=== PATIENT | male | born 1960 | race African-American/Black ===

== ENCOUNTER 2018-06-04 18:21 | Inpatient (IN) ==
[2018-06-04] MEDS ORDERED: Enoxaparin Inj 80 MG/0.8 ML Syringe SQ ONE (18:38)
--- NOTE | 2018-06-04 18:46 | ED ---
HPI General Chief Complaint: Chest Pain Stated Complaint: DR SENT WITH CARDIAC SHEET Time Seen by Provider: 06/04/18 18:38 Source: patient Mode of arrival: ambulatory Limitations: no limitations History of Present Illness HPI narrative: Patient presented to an urgent care where he was found to have atrial fibrillation with rapid ventricular rate, an EKG was performed and sent with the patient. Per patient he states that he is only has a history of hypertension for which she is on lisinopril aspirin and takes multivitamins. He does not have a ethics instructor that he recalls, although he has had a echo cardiogram as an outpatient somewhere along [facility] according to the patient. patient felt palpitations and chest pressure....presently he only feels palpitations but without cp/sob MD complaint: Reports "heart racing" and palpitations Duration: constant Severity: mild (According to patient) Context: Reports occurred during rest Arrhythmia history: Reports other (No history of any heart issues at all per patient); Denies on anti-coagulants Associated symptoms: Reports chest pain Related Data Home Medications Medication Instructions Recorded Confirmed aspirin 81 mg PO DAILY 06/04/18 06/04/18 lisinopril 20 mg PO DAILY 06/04/18 06/04/18 Allergies Allergy/AdvReac Type Severity Reaction Status Date / Time No Known Allergies Allergy Verified 06/04/18 18:27 Review of Systems ROS: all other systems reviewed are negative [facility] Medical History Medical History Hypertension (Acute) Surgical History Surgical History No history of previous surgery (Acute) Social History Social History Substance History: No History of Abuse Smoking Status: Never smoker How Often Do You Have a Drink Containing Alcohol: Never Recent Travel in [place] within the Last 8 Weeks: No Recent Out of Country Travel within the Last 8 Weeks: No Immunization History Tetanus Immunization: <5 Years Exam Narrative Exam Narrative: GENERAL: -[place]isian male in no apparent distress. SKIN: Warm and dry. HEAD: Atraumatic. Normocephalic. EYES: Pupils equal and round. No scleral icterus. No injection or drainage. ENT: No nasal bleeding or discharge. Mucous membranes pink and moist. NECK: Trachea midline. No JVD. CARDIOVASCULAR: Tachycardic rate, irregularly irregular rhythm .... Unable to discern if there are any murmurs rubs or gallops RESPIRATORY: No accessory muscle use. Clear to auscultation. Breath sounds equal bilaterally. GASTROINTESTINAL: Abdomen soft, non-tender, nondistended. No rebound or guarding MUSCULOSKELETAL: Extremities without clubbing, cyanosis, or edema. No obvious deformities. NEUROLOGICAL: Awake and alert. No obvious cranial nerve deficits. Motor grossly within normal limits. Five out of 5 muscle strength in the arms and legs. Normal speech. PSYCHIATRIC: Appropriate mood and affect; insight and judgment normal. Course Initial Documented Vital Signs Temperature 98.4 F 06/04/18 18:25 Pulse Rate 166 H 06/04/18 18:25 Respiratory Rate 20 06/04/18 18:25 Blood Pressure 157/115 H 06/04/18 18:25 Pulse Oximetry 100 06/04/18 18:25 Last Documented Vital Signs Temperature 98.4 F 06/04/18 18:25 Pulse Rate 108 H 06/04/18 21:46 Respiratory Rate 16 06/04/18 20:57 Blood Pressure 161/78 H 06/04/18 21:46 Pulse Oximetry 96 06/04/18 20:40 Critical Care Time Critical Care Time: Yes Total Critical Care Time: 30 Attestation: Aggregate critical care time was 30 minutes. Time to perform other separately billable procedures was not included in the critical care time. My time did not include minutes spent treating any other patients simultaneously or on activities that did not directly contribute to the patient's treatment. The services I provided to this patient were to treat and/or prevent clinically significant deterioration. I provided critical care services requiring my management, as noted below: Chart data review, documentation time, medication orders and management, vital sign assessments/reviewing monitor data, ordering and reviewing lab tests, ordering and interpreting/reviewing x-rays and diagnostic studies, care of the patient and discussion of the patient with the admitting physicians. Medical Decision Making MDM Narrative Medical decision making narrative: Chest x-ray is negative examination per radiology report Laboratory interpretation to follow: No leukocytosis, no anemia, slight neutrophilia of 84%, low platelet count of 123,000 Coagulation profile is within normal limits. D-dimer is elevated Mildly elevated AST of 83 ALT of 125 alk phos is normal total bilirubin is also within normal limits these are not altered enough to follow-up acutely but patient was made aware to follow-up with his primary care Creatinine 1.34, GFR 66 CT chest read by radiologist as no evidence of pulmonary embolus, no pericardial effusion, no evidence of any aneurysm, however there is a small right-sided pleural effusion. Medical Screen Exam Complete: Yes Emergency Medical Condition: Yes Medical Records Medical records reviewed: Yes I reviewed the patient's medical records. Lab Data Result diagrams: 06/04/18 18:42 06/04/18 18:42 Lab Results 06/04/18 06/04/18 06/04/18 Range/Units 18:42 18:42 18:42 WBC (4.0-11.0) th/mm3 RBC (4.50-5.90) mil/mm3 Hgb (13.0-17.0) gm/dL Hct (39.0-51.0) % MCV (80.0-100.0) fL MCH (27.0-34.0) pg MCHC (32.0-36.0) % RDW (11.6-17.2) % Plt Count (150-450) th/mm3 MPV (7.0-11.0) fL Neut % (Auto) (16.0-70.0) % Lymph % (Auto) (9.0-44.0) % Davidson % (Auto) (0.0-8.0) % Eos % (Auto) (0.0-4.0) % Baso % (Auto) (0.0-2.0) % Neut # (Auto) (1.8-7.7) th/mm3 Lymph # (Auto) (1.0-4.8) th/mm3 Davidson # (Auto) (0.0-0.9) th/mm3 Eos # (Auto) (0.0-0.4) th/mm3 Baso # (Auto) (0.0-0.2) th/mm3 WBC Differential Differential Comment PT (9.8-11.6) sec INR Ratio APTT (24.3-30.1) sec D-Dimer Quant (PE/DVT) 2.27 H (0.00-0.50) mg/L FEU Sodium (136-145) meq/L Potassium (3.5-5.1) meq/L Chloride (98-107) meq/L Carbon Dioxide (21.0-32.0) meq/L Anion Gap (5-15) meq/L BUN (7-18) mg/dL Creatinine (0.60-1.30) mg/dL Estimated GFR (>89) mL/min Random Glucose (74-106) mg/dL Calcium (8.5-10.1) mg/dL Total Bilirubin (0.2-1.0) mg/dL AST (15-37) U/L ALT (12-78) U/L Alkaline Phosphatase (45-117) U/L Total Creatine Kinase (39-308) U/L CK-MB (CK-2) (0.5-3.6) ng/mL Troponin I (0.02-0.05) ng/mL B-Natriuretic Peptide 115 H (0-100) pg/mL Total Protein (6.4-8.2) g/dL Albumin (3.4-5.0) g/dL Lipase 190 (73-393) U/L Urine Color (Yellw/Straw) Urine Clarity (Clear) Urine pH (5.0-8.5) Ur Specific Rhame (1.002-1.035) Urine Protein (Neg-Trace) mg/dL Urine Glucose (UA) (Negative) mg/dL Urine Ketones (Negative) mg/dL Urine Occult Blood (Negative) Urine Nitrate (Negative) Urine Bilirubin (Negative) Urine Urobilinogen (Less than 2) mg/dL Ur Leukocyte Esterase (Negative) Urine RBC (0-3) /hpf Urine WBC (0-5) /hpf Micro UA Comment Ur Microscopic Review Urine Culture Comments Urine Opiates Screen (Neg) Ur Barbiturates Screen (Neg) Ur Amphetamines Screen (Neg) U Benzodiazepines Scrn (Neg) Urine Cocaine Screen (Neg) U Cannabinoids Screen (Neg) 06/04/18 06/04/18 06/04/18 Range/Units 18:42 18:42 18:42 WBC 5.2 (4.0-11.0) th/mm3 RBC 4.32 L (4.50-5.90) mil/mm3 Hgb 13.7 (13.0-17.0) gm/dL Hct 41.4 (39.0-51.0) % MCV 96.0 (80.0-100.0) fL MCH 31.8 (27.0-34.0) pg MCHC 33.1 (32.0-36.0) % RDW 15.3 (11.6-17.2) % Plt Count 123 L (150-450) th/mm3 MPV 8.6 (7.0-11.0) fL Neut % (Auto) 83.5 H (16.0-70.0) % Lymph % (Auto) 11.3 (9.0-44.0) % Davidson % (Auto) 4.3 (0.0-8.0) % Eos % (Auto) 0.1 (0.0-4.0) % Baso % (Auto) 0.8 (0.0-2.0) % Neut # (Auto) 4.3 (1.8-7.7) th/mm3 Lymph # (Auto) 0.6 L (1.0-4.8) th/mm3 Davidson # (Auto) 0.2 (0.0-0.9) th/mm3 Eos # (Auto) 0.0 (0.0-0.4) th/mm3 Baso # (Auto) 0.0 (0.0-0.2) th/mm3 WBC Differential . Differential Comment Auto diff final PT 11.0 (9.8-11.6) sec INR 1.1 Ratio APTT 22.2 L (24.3-30.1) sec D-Dimer Quant (PE/DVT) (0.00-0.50) mg/L FEU Sodium 139 (136-145) meq/L Potassium 3.6 (3.5-5.1) meq/L Chloride 106 (98-107) meq/L Carbon Dioxide 24.4 (21.0-32.0) meq/L Anion Gap 9 (5-15) meq/L BUN 16 (7-18) mg/dL Creatinine 1.34 H (0.60-1.30) mg/dL Estimated GFR 66 L (>89) mL/min Random Glucose 134 H (74-106) mg/dL Calcium 8.2 L (8.5-10.1) mg/dL Total Bilirubin 1.1 H (0.2-1.0) mg/dL AST 83 H (15-37) U/L ALT 125 H (12-78) U/L Alkaline Phosphatase 77 (45-117) U/L Total Creatine Kinase 217 (39-308) U/L CK-MB (CK-2) 1.2 (0.5-3.6) ng/mL Troponin I Less than 0.02 L (0.02-0.05) ng/mL B-Natriuretic Peptide (0-100) pg/mL Total Protein 7.4 (6.4-8.2) g/dL Albumin 3.7 (3.4-5.0) g/dL Lipase (73-393) U/L Urine Color (Yellw/Straw) Urine Clarity (Clear) Urine pH (5.0-8.5) Ur Specific Rhame (1.002-1.035) Urine Protein (Neg-Trace) mg/dL Urine Glucose (UA) (Negative) mg/dL Urine Ketones (Negative) mg/dL Urine Occult Blood (Negative) Urine Nitrate (Negative) Urine Bilirubin (Negative) Urine Urobilinogen (Less than 2) mg/dL Ur Leukocyte Esterase (Negative) Urine RBC (0-3) /hpf Urine WBC (0-5) /hpf Micro UA Comment Ur Microscopic Review Urine Culture Comments Urine Opiates Screen (Neg) Ur Barbiturates Screen (Neg) Ur Amphetamines Screen (Neg) U Benzodiazepines Scrn (Neg) Urine Cocaine Screen (Neg) U Cannabinoids Screen (Neg) 06/04/18 06/04/18 Range/Units 19:45 19:45 WBC (4.0-11.0) th/mm3 RBC (4.50-5.90) mil/mm3 Hgb (13.0-17.0) gm/dL Hct (39.0-51.0) % MCV (80.0-100.0) fL MCH (27.0-34.0) pg MCHC (32.0-36.0) % RDW (11.6-17.2) % Plt Count (150-450) th/mm3 MPV (7.0-11.0) fL Neut % (Auto) (16.0-70.0) % Lymph % (Auto) (9.0-44.0) % Davidson % (Auto) (0.0-8.0) % Eos % (Auto) (0.0-4.0) % Baso % (Auto) (0.0-2.0) % Neut # (Auto) (1.8-7.7) th/mm3 Lymph # (Auto) (1.0-4.8) th/mm3 Davidson # (Auto) (0.0-0.9) th/mm3 Eos # (Auto) (0.0-0.4) th/mm3 Baso # (Auto) (0.0-0.2) th/mm3 WBC Differential Differential Comment PT (9.8-11.6) sec INR Ratio APTT (24.3-30.1) sec D-Dimer Quant (PE/DVT) (0.00-0.50) mg/L FEU Sodium (136-145) meq/L Potassium (3.5-5.1) meq/L Chloride (98-107) meq/L Carbon Dioxide (21.0-32.0) meq/L Anion Gap (5-15) meq/L BUN (7-18) mg/dL Creatinine (0.60-1.30) mg/dL Estimated GFR (>89) mL/min Random Glucose (74-106) mg/dL Calcium (8.5-10.1) mg/dL Total Bilirubin (0.2-1.0) mg/dL AST (15-37) U/L ALT (12-78) U/L Alkaline Phosphatase (45-117) U/L Total Creatine Kinase (39-308) U/L CK-MB (CK-2) (0.5-3.6) ng/mL Troponin I (0.02-0.05) ng/mL B-Natriuretic Peptide (0-100) pg/mL Total Protein (6.4-8.2) g/dL Albumin (3.4-5.0) g/dL Lipase (73-393) U/L Urine Color Yellow (Yellw/Straw) Urine Clarity Hazy H (Clear) Urine pH 6.0 (5.0-8.5) Ur Specific Rhame 1.002 (1.002-1.035) Urine Protein Negative (Neg-Trace) mg/dL Urine Glucose (UA) Negative (Negative) mg/dL Urine Ketones Negative (Negative) mg/dL Urine Occult Blood Negative (Negative) Urine Nitrate Negative (Negative) Urine Bilirubin Negative (Negative) Urine Urobilinogen Less than 2 (Less than 2) mg/dL Ur Leukocyte Esterase Negative (Negative) Urine RBC Less than 1 (0-3) /hpf Urine WBC Less than 1 (0-5) /hpf Micro UA Comment Culture not ind Ur Microscopic Review Not Reportable Urine Culture Comments Culture not ind Urine Opiates Screen Neg (Neg) Ur Barbiturates Screen Neg (Neg) Ur Amphetamines Screen Neg (Neg) U Benzodiazepines Scrn Neg (Neg) Urine Cocaine Screen Neg (Neg) U Cannabinoids Screen Neg (Neg) Imaging Data Radiologist's impression: Chest X-Ray 06/04/18 18:39 CONCLUSION: Negative examination. Chest CTA 06/04/18 19:32 CONCLUSION: 1. No evidence for pulmonary embolism. 2. Small right-sided pleural effusion. ECG Data EKG Prior to Arrival: No Attestation: I personally reviewed and interpreted this ECG as follows: Prior ECG tracings: not available for review Interpretation: Patient's EKG was found consistent with atrial fibrillation with rapid ventricular rate, at 160 bpm. No slurred delta wave noted, no widened QRS noted. Discharge Plan Discharge Disposition Patient Disposition: 30 Still Patient Discharge Condition Condition: Fair Discharge Details Diagnosis: Atrial fibrillation, new onset Physicians Team ED Provider: Romain Kapoor Primary Care Provider: Daryn Hood Attending Provider: Kenisha Carey Status ED Status: Admitted Observation Patient
[2018-06-04 18:58] LABS: Baso % (Auto) 0.8 % (0.0-2.0); Eos % (Auto) 0.1 % (0.0-4.0); Hematocrit 41.4 % (39.0-51.0); Hemoglobin 13.7 gm/dL (13.0-17.0); Lymph # (Auto) 0.6 th/mm3 (1.0-4.8); Lymph % (Auto) 11.3 % (9.0-44.0); Mean Corpuscular HGB Conc 33.1 % (32.0-36.0); Mean Corpuscular Hemoglobin 31.8 pg (27.0-34.0); Mean Platelet Volume 8.6 fL (7.0-11.0); Mono # (Auto) 0.2 th/mm3 (0.0-0.9); Mono % (Auto) 4.3 % (0.0-8.0); Neut # (Auto) 4.3 th/mm3 (1.8-7.7); Neut % (Auto) 83.5 % (16.0-70.0); Platelet Count 123 th/mm3 (150-450); Red Blood Count 4.32 mil/mm3 (4.50-5.90); Red Cell Distribution Width 15.3 % (11.6-17.2); White Blood Count 5.2 th/mm3 (4.0-11.0)
[2018-06-04 19:16] LABS: Albumin 3.7 g/dL (3.4-5.0); Anion Gap 9 meq/L (5-15); Aspartate Aminotransferase 83 U/L (15-37); Blood Urea Nitrogen 16 mg/dL (7-18); Calcium 8.2 mg/dL (8.5-10.1); Carbon Dioxide 24.4 meq/L (21.0-32.0); Chloride 106 meq/L (98-107); Glomerular Filtration Rate 66 mL/min (>89); Glucose,Random 134 mg/dL (74-106); Potassium 3.6 meq/L (3.5-5.1); Sodium 139 meq/L (136-145)
[2018-06-04 19:17] LABS: Alanine Aminotransferase 125 U/L (12-78)
[2018-06-04 19:19] LABS: Activated Partial Thrombo Time 22.2 sec (24.3-30.1); INR 1.1 Ratio
[2018-06-04 19:21] LABS: Alkaline Phosphatase 77 U/L (45-117); Creatine Kinase 217 U/L (39-308); Total Protein 7.4 g/dL (6.4-8.2)
--- NOTE | 2018-06-04 19:28 | XR ---
EXAM DATE: 06/04/2018 6:39 PM EDT AGE/SEX: 57 years / Male INDICATIONS: Patient complains of chest pain. CLINICAL DATA: This is the patient's initial encounter. Patient reports that signs and symptoms have been present for 3 days and indicates a pain score of 4/10. MEDICAL/SURGICAL HISTORY: None. None. COMPARISON: [facility] [place], CHEST SINGLE AP, 03/13/2016. . FINDINGS: A single AP view of the chest demonstrates the lungs to be symmetrically aerated without evidence of mass, infiltrate or effusion. The cardiomediastinal contours are unremarkable. Osseous structures a re intact. CONCLUSION: Negative examination. Electronically signed by: Pb Shah MD 06/04/2018 7:27 PM EDT
[2018-06-04 19:34] LABS: Creatine Kinase MB 1.2 ng/mL (0.5-3.6)
[2018-06-04] MEDS: dilTIAZem Inj 125 MG in Sodium Chlor 0.9% Inj 100 ML IV.CONT PRN (19:41)
[2018-06-04 20:06] LABS: Bilirubin,Urine Negative (Negative); Clarity,Urine Hazy (Clear); Color,Urine Yellow (Yellw/Straw); Glucose,Urine (UA) Negative (Negative); Leukocyte Esterase,Urine Negative (Negative); Nitrite,Urine Negative (Negative); Specific Gravity,Urine 1.002 (1.002-1.035)
[2018-06-04 20:17] LABS: Barbiturate Screen,Urine Neg (Neg); Cannabinoid Screen,Urine Neg (Neg); Cocaine Screen,Urine Neg (Neg)
[2018-06-04 20:18] LABS: Amphetamine Screen,Urine Neg (Neg)
--- NOTE | 2018-06-04 20:20 | CT ---
EXAM DATE: 06/04/2018 7:45 PM EDT AGE/SEX: 57 years / Male INDICATIONS: Heart palpitations with elevated D-Dimer. CLINICAL DATA: This is the patient's initial encounter. Patient reports that signs and symptoms have been present for 1 day and indicates a pain score of 0/10. MEDICAL/SURGICAL HISTORY: Cardiovascular disease. Hypertension. None. RADIATION DOSE: 23.38 CTDI (mGy) COMPARISON: [facility], CHEST 1V SINGLE AP, 06/04/2018. . TECHNIQUE: Volumetric scanning was performed using a multi-row detector CT scanner during bolus infu dedrick of 75 ml Omnipaque 350 (iohexol) nonionic water-soluble contrast as a single exam dose. The aletha a was post processed with a variety of visualization algorithms including full volume maximum intensi ty projection and sliding thin slab reformation. Using automated exposure control and adjustment of the mA and/or kV according to patient size, radiation dose was kept as low as reasonably achievable t o obtain optimal diagnostic quality images. DICOM format image data is available electronically for review and comparison. FINDINGS: Lungs are clear. No adenopathy. There is a small right-sided pleural effusion. There is no evidence o f pulmonary embolus. There are mild degenerative changes of the spine. CONCLUSION: 1. No evidence for pulmonary embolism. 2. Small right-sided pleural effusion. Electronically signed by: Pb Shah MD 06/04/2018 8:19 PM EDT
[2018-06-04 20:22] LABS: Opiate Screen,Urine Neg (Neg)
--- NOTE | 2018-06-04 22:27 | P.HP ---
History of Present Illness Service: [facility] Primary Care Physician: Daryn Hood MD History of Present Illness: 57-year-old male with past medical history significant for hypertension presents to the emergency department from urgent care for the evaluation of atrial fibrillation with rapid ventricular response. The patient was recently treated with Levaquin for a sinus infection and was given albuterol nebulizer treatments. He reports he had a neb this a.m. when he started to develop palpitations and a feeling in his chest as if he had to cough but could not. He endorses associated nausea. He denies any dizziness or shortness of breath. No syncopal episodes. He does not have a history of atrial fibrillation and he does not have a leak patcher. No chest pain or shortness of breath. No abdominal pain. No vomiting/diarrhea. No lateralizing signs/symptoms. No fever/chills. Review of Systems All other systems reviewed negative except as stated in HPI PMFSH - History History Provided By: Patient - Medical History Medical History: Medical History (Last Reviewed 06/04/18 @ 22:22 by Kenisha Carey MD) Hypertension - Surgical History Surgical History: Surgical History (Last Reviewed 06/04/18 @ 22:22 by Kenisha Carey MD) No history of previous surgery - Family History Family History: Family History (Last Updated 06/04/18 @ 22:22 by Kenisha Carey MD) Other Coronary artery disease - Tobacco History Smoking Status: Never smoker - Alcohol History How Often Do You Have a Drink Containing Alcohol: Never - Substance Use History Substance History: No History of Abuse - Travel History Recent Travel in the [place] Within the Last 8 Weeks: No Recent Travel Out of the Country Within the Last 8 Weeks: No - Immunization History Tetanus Immunization: <5 Years Medications and Allergies Active Medications: Active Medications Aspirin (Ecotrin) 81 mg PO DAILY SHEILA Enoxaparin Sodium (Lovenox Inj) 65 mg SQ Q12H SHEILA Diltiazem HCl 125 mg/ Sodium (Chloride) 125 mls @ 5 mls/hr IV.CONT TITRATE PRN ; Protocol PRN Reason: Per Protocol Last Titration: 06/04/18 20:20 Dose: 15 mg/hr, 15 mls/hr Lisinopril (Prinivil) 20 mg PO DAILY SHEILA Sodium Chloride (Ns Flush) 2 ml IV.FLUSH BID SHEILA Sodium Chloride (Ns Flush) 2 ml IV.FLUSH PRN PRN PRN Reason: FLUSH AFTER USING IV ACCESS Last Admin: 06/04/18 18:53 Dose: 2 ml Sodium Chloride (Ns Flush) 2 ml IV.FLUSH UNSCH PRN PRN Reason: FLUSH AFTER USING IV ACCESS Sodium Chloride (Ns Flush) 2 ml IV.FLUSH PRN PRN PRN Reason: FLUSH AFTER USING IV ACCESS Sodium Chloride (Ns Flush) 2 ml IV.FLUSH BID SHEILA Allergies Allergy/AdvReac Type Severity Reaction Status Date / Time No Known Allergies Allergy Verified 06/04/18 18:27 Home Medications Medication Instructions Recorded Confirmed Type aspirin 81 mg PO DAILY 06/04/18 06/04/18 History lisinopril 20 mg PO DAILY 06/04/18 06/04/18 History Exam Vital signs: Vital Signs 06/04/18 18:25 06/04/18 18:31 06/04/18 18:47 Temperature 98.4 F Pulse Rate 166 H 133 H 137 H Respiratory Rate 20 18 22 Blood Pressure 157/115 H 136/99 H 135/99 H Pulse Oximetry 100 97 99 06/04/18 19:29 06/04/18 20:40 06/04/18 20:57 Temperature Pulse Rate 145 H 124 H 124 H Respiratory Rate 18 16 Blood Pressure 161/98 H 159/92 H 172/92 H Pulse Oximetry 98 96 06/04/18 21:46 Temperature Pulse Rate 108 H Respiratory Rate Blood Pressure 161/78 H Pulse Oximetry Intake & Output 06/04/18 06/04/18 06/05/18 06:59 18:59 06:59 Output Total 1400 / 1400 Balance -1400 / -1400 Weight 67.132 kg Output: Urine 1400 / 1400 Narrative: Gen.: No acute distress Head: Normocephalic. Atraumatic. EENT: Pupils equal round and reactive to light. Nose without drainage. Airway intact. Throat without injection. Cardiovascular: Tachycardic. Irregularly irregular rhythm. No murmurs, rubs or gallops. Respiratory: Lungs clear to auscultation bilaterally. No wheezes or rhonchi. Abdomen: Soft, nontender, nondistended. No peritoneal signs. Musculoskeletal: No gross deformities. No edema. Skin: No obvious rashes or erythema. Neuro: Sensory and motor grossly intact. Cranial nerves II through XII grossly intact. Results - Labs CBC & Chem 7: 06/04/18 18:42 06/04/18 18:42 Labs: Laboratory Results - last 24 hr 06/04/18 06/04/18 06/04/18 18:42 18:42 18:42 WBC RBC Hgb Hct MCV MCH MCHC RDW Plt Count MPV Neut % (Auto) Lymph % (Auto) [place] % (Auto) Eos % (Auto) Baso % (Auto) Neut # (Auto) Lymph # (Auto) [place] # (Auto) Eos # (Auto) Baso # (Auto) WBC Differential Differential Comment PT INR APTT D-Dimer Quant (PE/DVT) 2.27 H Sodium Potassium Chloride Carbon Dioxide Anion Gap BUN Creatinine Estimated GFR Random Glucose Calcium Total Bilirubin AST ALT Alkaline Phosphatase Total Creatine Kinase CK-MB (CK-2) Troponin I B-Natriuretic Peptide 115 H Total Protein Albumin Lipase 190 Urine Color Urine Clarity Urine pH Ur Specific [place] Urine Protein Urine Glucose (UA) Urine Ketones Urine Occult Blood Urine Nitrate Urine Bilirubin Urine Urobilinogen Ur Leukocyte Esterase Urine RBC Urine WBC Micro UA Comment Ur Microscopic Review Urine Culture Comments Urine Opiates Screen Ur Barbiturates Screen Ur Amphetamines Screen U Benzodiazepines Scrn Urine Cocaine Screen U Cannabinoids Screen 06/04/18 06/04/18 06/04/18 18:42 18:42 18:42 WBC 5.2 RBC 4.32 L Hgb 13.7 Hct 41.4 MCV 96.0 MCH 31.8 MCHC 33.1 RDW 15.3 Plt Count 123 L MPV 8.6 Neut % (Auto) 83.5 H Lymph % (Auto) 11.3 [place] % (Auto) 4.3 Eos % (Auto) 0.1 Baso % (Auto) 0.8 Neut # (Auto) 4.3 Lymph # (Auto) 0.6 L [place] # (Auto) 0.2 Eos # (Auto) 0.0 Baso # (Auto) 0.0 WBC Differential . Differential Comment Auto diff final PT 11.0 INR 1.1 APTT 22.2 L D-Dimer Quant (PE/DVT) Sodium 139 Potassium 3.6 Chloride 106 Carbon Dioxide 24.4 Anion Gap 9 BUN 16 Creatinine 1.34 H Estimated GFR 66 L Random Glucose 134 H Calcium 8.2 L Total Bilirubin 1.1 H AST 83 H ALT 125 H Alkaline Phosphatase 77 Total Creatine Kinase 217 CK-MB (CK-2) 1.2 Troponin I Less than 0.02 L B-Natriuretic Peptide Total Protein 7.4 Albumin 3.7 Lipase Urine Color Urine Clarity Urine pH Ur Specific [place] Urine Protein Urine Glucose (UA) Urine Ketones Urine Occult Blood Urine Nitrate Urine Bilirubin Urine Urobilinogen Ur Leukocyte Esterase Urine RBC Urine WBC Micro UA Comment Ur Microscopic Review Urine Culture Comments Urine Opiates Screen Ur Barbiturates Screen Ur Amphetamines Screen U Benzodiazepines Scrn Urine Cocaine Screen U Cannabinoids Screen 06/04/18 06/04/18 19:45 19:45 WBC RBC Hgb Hct MCV MCH MCHC RDW Plt Count MPV Neut % (Auto) Lymph % (Auto) [place] % (Auto) Eos % (Auto) Baso % (Auto) Neut # (Auto) Lymph # (Auto) [place] # (Auto) Eos # (Auto) Baso # (Auto) WBC Differential Differential Comment PT INR APTT D-Dimer Quant (PE/DVT) Sodium Potassium Chloride Carbon Dioxide Anion Gap BUN Creatinine Estimated GFR Random Glucose Calcium Total Bilirubin AST ALT Alkaline Phosphatase Total Creatine Kinase CK-MB (CK-2) Troponin I B-Natriuretic Peptide Total Protein Albumin Lipase Urine Color Yellow Urine Clarity Hazy H Urine pH 6.0 Ur Specific [place] 1.002 Urine Protein Negative Urine Glucose (UA) Negative Urine Ketones Negative Urine Occult Blood Negative Urine Nitrate Negative Urine Bilirubin Negative Urine Urobilinogen Less than 2 Ur Leukocyte Esterase Negative Urine RBC Less than 1 Urine WBC Less than 1 Micro UA Comment Culture not ind Ur Microscopic Review Not Reportable Urine Culture Comments Culture not ind Urine Opiates Screen Neg Ur Barbiturates Screen Neg Ur Amphetamines Screen Neg U Benzodiazepines Scrn Neg Urine Cocaine Screen Neg U Cannabinoids Screen Neg - Imaging Impressions Chest X-Ray 06/04/18 18:39 CONCLUSION: Negative examination. Chest CTA 06/04/18 19:32 CONCLUSION: 1. No evidence for pulmonary embolism. 2. Small right-sided pleural effusion. Caprini VTE Risk Assessment Caprini VTE Risk Assessment: Moderate/High Risk (score >= 2) Caprini Risk Assessment Model: Point Value = 1 Point Value = 2 Point Value = 3 Point Value = 5 Age 41-60 Minor surgery BMI > 25 kg/m2 Swollen legs Varicose veins or History of unexplained or recurrent spontaneous Oral contraceptives or hormone replacement Sepsis (< 1 month) Serious lung disease, including pneumonia (< 1 month) Abnormal pulmonary function Acute myocardial infarction Congestive heart failure (< 1 month) History of inflammatory bowel disease Medical patient at bed rest Age 61-74 Arthroscopic surgery Major open surgery (> 45 min) Laparoscopic surgery (> 45 min) Malignancy Confined to bed (> 72 hours) Immobilizing plaster cast Central venous access Age >= 75 History of VTE Family history of VTE Factor V Leiden Prothrombin [id number] Lupus anticoagulant Anticardiolipin antibodies Elevated serum homocysteine Heparin-induced thrombocytopenia Other congenital or acquired thrombophilia Stroke (< 1 month) Elective arthroplasty Hip, pelvis, or leg fracture Acute spinal cord injury (< 1 month) Prophylaxis Regimen: Total Risk Factor Score Risk Level Prophylaxis Regimen 0-1 Low Early ambulation 2 Moderate Order ONE of the following: *Sequential Compression Device (SCD) *Heparin 5000 units SQ BID 3-4 Higher Order ONE of the following medications: *Heparin 5000 units SQ TID *Enoxaparin/Lovenox 40 mg SQ daily (WT < 150 kg, CrCl > 30 mL/min) *Enoxaparin/Lovenox 30 mg SQ daily (WT < 150 kg, CrCl > 10-29 mL/min) *Enoxaparin/Lovenox 30 mg SQ BID (WT < 150 kg, CrCl > 30 mL/min) AND/OR *Sequential Compression Device (SCD) 5 or more Highest Order ONE of the following medications: *Heparin 5000 units SQ TID (Preferred with Epidurals) *Enoxaparin/Lovenox 40 mg SQ daily (WT < 150 kg, CrCl > 30 mL/min) *Enoxaparin/Lovenox 30 mg SQ daily (WT < 150 kg, CrCl > 10-29 mL/min) *Enoxaparin/Lovenox 30 mg SQ BID (WT < 150 kg, CrCl > 30 mL/min) AND *Sequential Compression Device (SCD) Assessment and Plan - Plan Assessment/plan: 1. Atrial fibrillation with rapid ventricular response EKG significant for A. fib with RVR, pulse 160, no ST segment elevations or depressions, personally reviewed Diltiazem bolus and drip Therapeutic Lovenox Cardiology consulted, appreciate assistance Echo pending 2. Hypertension Continue home lisinopril 3. AK I Creatinine 1.34, baseline unknown IV fluid hydration Monitor renal function FEN Heart healthy diet Electrolytes: Monitor and replete as needed NS at 70 cc/hour
[2018-06-04] MEDS: Sod Chloride 0.9% Inj 1,000 ML IV.CONT SCH (23:04)
[2018-06-04] MEDS: Enoxaparin Inj 80 MG/0.8 ML Syringe SQ SCH (23:05)
[2018-06-05] MEDS: dilTIAZem Inj 125 MG in Sodium Chlor 0.9% Inj 100 ML IV.CONT PRN ×2 (05:04→15:45)
[2018-06-05 06:14] LABS: Hematocrit 39.3 % (39.0-51.0); Hemoglobin 13.3 gm/dL (13.0-17.0); Mean Corpuscular HGB Conc 33.7 % (32.0-36.0); Mean Corpuscular Volume 94.8 fL (80.0-100.0); Mean Platelet Volume 8.8 fL (7.0-11.0); Platelet Count 121 th/mm3 (150-450); Red Blood Count 4.15 mil/mm3 (4.50-5.90); Red Cell Distribution Width 15.7 % (11.6-17.2); White Blood Count 4.5 th/mm3 (4.0-11.0)
[2018-06-05 06:44] LABS: Calcium 8.6 mg/dL (8.5-10.1); Carbon Dioxide 23.8 meq/L (21.0-32.0); Potassium 3.6 meq/L (3.5-5.1)
[2018-06-05] MEDS: Lisinopril 20 MG Tablet PO SCH (08:31)
--- NOTE | 2018-06-05 08:53 | P.PN ---
Subjective Interval history: Patient is resting comfortably at bed. Endorses some sensations of palpitations and rapid breathing over night. Otherwise doing well. Denies fever, chills, chest pain, SOB, nausea, vomiting, diarrhea, constipation. Physical Exam Vital signs: Vital Signs 06/04/18 18:25 06/04/18 18:31 06/04/18 18:47 Temperature 98.4 F Pulse Rate 166 H 133 H 137 H Respiratory Rate 20 18 22 Blood Pressure 157/115 H 136/99 H 135/99 H Pulse Oximetry 100 97 99 06/04/18 19:29 06/04/18 20:40 06/04/18 20:57 Temperature Pulse Rate 145 H 124 H 124 H Respiratory Rate 18 16 Blood Pressure 161/98 H 159/92 H 172/92 H Pulse Oximetry 98 96 06/04/18 21:46 06/04/18 22:30 06/05/18 00:00 Temperature 97.6 F Pulse Rate 108 H 108 H 108 H Respiratory Rate 18 Blood Pressure 161/78 H 151/90 H Pulse Oximetry 96 06/05/18 04:00 06/05/18 08:00 Temperature 97.9 F 98.0 F Pulse Rate 106 H 113 H Respiratory Rate 16 18 Blood Pressure 135/82 169/90 H Pulse Oximetry 95 92 L Intake & Output 06/04/18 06/05/18 06/05/18 18:59 06:59 18:59 Intake Total 845 / 845 Output Total 1800 / 1800 Balance -955 / -955 Weight 67.132 kg 107.8 kg Intake: IV 125 / 125 Cardizem Inj 125 MG In NS Inj 125 / 125 100 ML @ 5 MG/HR 5 mls/hr IV. CONT TITRATE PRN Rx#:[id number] Oral 720 / 720 Output: Urine 1800 / 1800 Other: Date of Last Bowel Movement 06/04/18 # Bowel Movements 0 Weight On Admission 107.5 kg Narrative: GENERAL: 57 year old male in NAD, alert and oriented x3. SKIN: Warm and dry. HEAD: Atraumatic. Normocephalic. EYES: Pupils equal and round. No scleral icterus. No injection or drainage. ENT: No nasal bleeding or discharge. Mucous membranes pink and moist. NECK: Trachea midline. No JVD. CARDIOVASCULAR: Irregularly irregular rhythm. RESPIRATORY: No accessory muscle use. Clear to auscultation. Breath sounds equal bilaterally. GASTROINTESTINAL: Abdomen soft, non-tender, nondistended. Hepatic and splenic margins not palpable. MUSCULOSKELETAL: Extremities without clubbing, cyanosis, or edema. No obvious deformities. NEUROLOGICAL: Awake and alert. No obvious cranial nerve deficits. Motor grossly within normal limits. Normal speech. PSYCHIATRIC: Appropriate mood and affect; insight and judgment normal. Results - Labs CBC & Chem 7: 06/05/18 06:01 06/05/18 06:01 Laboratory Results - last 24 hr 06/04/18 06/04/18 06/04/18 18:42 18:42 18:42 WBC RBC Hgb Hct MCV MCH MCHC RDW Plt Count MPV Neut % (Auto) Lymph % (Auto) [place] % (Auto) Eos % (Auto) Baso % (Auto) Neut # (Auto) Lymph # (Auto) [place] # (Auto) Eos # (Auto) Baso # (Auto) WBC Differential Differential Comment PT INR APTT D-Dimer Quant (PE/DVT) 2.27 H Sodium Potassium Chloride Carbon Dioxide Anion Gap BUN Creatinine Estimated GFR Random Glucose Calcium Total Bilirubin AST ALT Alkaline Phosphatase Total Creatine Kinase CK-MB (CK-2) Troponin I B-Natriuretic Peptide 115 H Total Protein Albumin Lipase 190 Urine Color Urine Clarity Urine pH Ur Specific [place] Urine Protein Urine Glucose (UA) Urine Ketones Urine Occult Blood Urine Nitrate Urine Bilirubin Urine Urobilinogen Ur Leukocyte Esterase Urine RBC Urine WBC Micro UA Comment Ur Microscopic Review Urine Culture Comments Urine Opiates Screen Ur Barbiturates Screen Ur Amphetamines Screen U Benzodiazepines Scrn Urine Cocaine Screen U Cannabinoids Screen 06/04/18 06/04/18 06/04/18 18:42 18:42 18:42 WBC 5.2 RBC 4.32 L Hgb 13.7 Hct 41.4 MCV 96.0 MCH 31.8 MCHC 33.1 RDW 15.3 Plt Count 123 L MPV 8.6 Neut % (Auto) 83.5 H Lymph % (Auto) 11.3 [place] % (Auto) 4.3 Eos % (Auto) 0.1 Baso % (Auto) 0.8 Neut # (Auto) 4.3 Lymph # (Auto) 0.6 L [place] # (Auto) 0.2 Eos # (Auto) 0.0 Baso # (Auto) 0.0 WBC Differential . Differential Comment Auto diff final PT 11.0 INR 1.1 APTT 22.2 L D-Dimer Quant (PE/DVT) Sodium 139 Potassium 3.6 Chloride 106 Carbon Dioxide 24.4 Anion Gap 9 BUN 16 Creatinine 1.34 H Estimated GFR 66 L Random Glucose 134 H Calcium 8.2 L Total Bilirubin 1.1 H AST 83 H ALT 125 H Alkaline Phosphatase 77 Total Creatine Kinase 217 CK-MB (CK-2) 1.2 Troponin I Less than 0.02 L B-Natriuretic Peptide Total Protein 7.4 Albumin 3.7 Lipase Urine Color Urine Clarity Urine pH Ur Specific [place] Urine Protein Urine Glucose (UA) Urine Ketones Urine Occult Blood Urine Nitrate Urine Bilirubin Urine Urobilinogen Ur Leukocyte Esterase Urine RBC Urine WBC Micro UA Comment Ur Microscopic Review Urine Culture Comments Urine Opiates Screen Ur Barbiturates Screen Ur Amphetamines Screen U Benzodiazepines Scrn Urine Cocaine Screen U Cannabinoids Screen 06/04/18 06/04/18 06/05/18 19:45 19:45 06:01 WBC 4.5 RBC 4.15 L Hgb 13.3 Hct 39.3 MCV 94.8 MCH 32.0 MCHC 33.7 RDW 15.7 Plt Count 121 L MPV 8.8 Neut % (Auto) Lymph % (Auto) [place] % (Auto) Eos % (Auto) Baso % (Auto) Neut # (Auto) Lymph # (Auto) [place] # (Auto) Eos # (Auto) Baso # (Auto) WBC Differential Differential Comment PT INR APTT D-Dimer Quant (PE/DVT) Sodium Potassium Chloride Carbon Dioxide Anion Gap BUN Creatinine Estimated GFR Random Glucose Calcium Total Bilirubin AST ALT Alkaline Phosphatase Total Creatine Kinase CK-MB (CK-2) Troponin I B-Natriuretic Peptide Total Protein Albumin Lipase Urine Color Yellow Urine Clarity Hazy H Urine pH 6.0 Ur Specific [place] 1.002 Urine Protein Negative Urine Glucose (UA) Negative Urine Ketones Negative Urine Occult Blood Negative Urine Nitrate Negative Urine Bilirubin Negative Urine Urobilinogen Less than 2 Ur Leukocyte Esterase Negative Urine RBC Less than 1 Urine WBC Less than 1 Micro UA Comment Culture not ind Ur Microscopic Review Not Reportable Urine Culture Comments Culture not ind Urine Opiates Screen Neg Ur Barbiturates Screen Neg Ur Amphetamines Screen Neg U Benzodiazepines Scrn Neg Urine Cocaine Screen Neg U Cannabinoids Screen Neg 06/05/18 06:01 WBC RBC Hgb Hct MCV MCH MCHC RDW Plt Count MPV Neut % (Auto) Lymph % (Auto) [place] % (Auto) Eos % (Auto) Baso % (Auto) Neut # (Auto) Lymph # (Auto) [place] # (Auto) Eos # (Auto) Baso # (Auto) WBC Differential Differential Comment PT INR APTT D-Dimer Quant (PE/DVT) Sodium 141 Potassium 3.6 Chloride 109 H Carbon Dioxide 23.8 Anion Gap 8 BUN 15 Creatinine 1.07 Estimated GFR 86 L Random Glucose 101 Calcium 8.6 Total Bilirubin AST ALT Alkaline Phosphatase Total Creatine Kinase CK-MB (CK-2) Troponin I B-Natriuretic Peptide Total Protein Albumin Lipase Urine Color Urine Clarity Urine pH Ur Specific [place] Urine Protein Urine Glucose (UA) Urine Ketones Urine Occult Blood Urine Nitrate Urine Bilirubin Urine Urobilinogen Ur Leukocyte Esterase Urine RBC Urine WBC Micro UA Comment Ur Microscopic Review Urine Culture Comments Urine Opiates Screen Ur Barbiturates Screen Ur Amphetamines Screen U Benzodiazepines Scrn Urine Cocaine Screen U Cannabinoids Screen - Imaging Impressions Chest X-Ray 06/04/18 18:39 CONCLUSION: Negative examination. Chest CTA 06/04/18 19:32 CONCLUSION: 1. No evidence for pulmonary embolism. 2. Small right-sided pleural effusion. Assessment and Plan - Plan A Fib with RVR Atrial fibrillation with rapid ventricular response EKG significant for A. fib with RVR, pulse 160, no ST segment elevations or depressions Received Diltiazem bolus and drip Cardiology consulted, appreciate assistance Echo pending Hypertension Continue home lisinopril YOLANDA Creatinine 1.34 on admission, repeat 1.07 on 06/05. IV fluid hydration Monitor renal function FEN Heart healthy diet Electrolytes: Monitor and replete as needed NS at 70 cc/hour DVT prophylaxis: Patient started on Xarelto per cardiology Code Status: Full
[2018-06-05] MEDS ORDERED: Influenza (Quadrivalent) Vaccine 0.5 ML Syringe IM ONE (09:00)
[2018-06-05] MEDS: Enoxaparin Inj 80 MG/0.8 ML Syringe SQ SCH (10:56)
--- NOTE | 2018-06-05 11:05 | P.CONCA ---
History of Present Illness Service: Cardiology Consult date: 06/05/18 Requesting Physician: Kenisha Carey Reason for Consult: New onset atrial fib with rapid ventricular response Primary Care Provider: Daryn Hood MD History of Present Illness: This is a 57-year-old -[place] male with past medical history of hypertension. He recently was being treated for a sinus infection for which he took Levaquin and albuterol nebulized treatments. Yesterday after receiving a nebulizer treatment of albuterol he developed palpitations, nausea, mild shortness of breath and a feeling in his chest like he needed to cough but was unable to. At this time, he went to the urgent care center to be evaluated and they sent him to the emergency department for further evaluation. Patient was found to be in atrial fibrillation with rapid ventricular response with no prior history. He currently denies any chest pain, pressure, palpitations, dizziness, edema or shortness of breath. He is currently in atrial fibrillation , rate in the 120s and on a Cardizem drip. Review of Systems All other systems reviewed negative except as stated in HPI [facility] - History History Provided By: Patient - Medical History Medical History: Medical History (Last Reviewed 06/04/18 @ 22:22 by Kenisha Carey MD) Hypertension - Surgical History Surgical History: Surgical History (Last Reviewed 06/04/18 @ 22:22 by Kenisha Carey MD) No history of previous surgery - Family History Family History: Family History (Last Updated 06/04/18 @ 22:22 by Kenisha Carey MD) Other Coronary artery disease - Tobacco History Second Hand Smoke Exposure: No Tobacco Use In Past 30 Days: Yes Smoking Status: Never smoker - Alcohol History How Often Do You Have a Drink Containing Alcohol: Never - Substance Use History Substance History: No History of Abuse - Travel History Recent Travel in the [place] Within the Last 8 Weeks: No Recent Travel Out of the Country Within the Last 8 Weeks: No - Immunization History Tetanus Immunization: >5 Years Hx Influenza Vaccine This Season: No Medications and Allergies Allergies Allergy/AdvReac Type Severity Reaction Status Date / Time No Known Allergies Allergy Verified 06/04/18 18:27 Home Medications Medication Instructions Recorded Confirmed Type aspirin 81 mg PO DAILY 06/04/18 06/04/18 History lisinopril 20 mg PO DAILY 06/04/18 06/04/18 History Active Medications: Active Medications Aspirin (Ecotrin) 81 mg PO DAILY [facility] Last Admin: 06/05/18 08:31 Dose: 81 mg Enoxaparin Sodium (Lovenox Inj) 65 mg SQ Q12H [facility] Last Admin: 06/04/18 23:05 Dose: Not Given Diltiazem HCl 125 mg/ Sodium (Chloride) 125 mls @ 5 mls/hr IV.CONT TITRATE PRN ; Protocol PRN Reason: Per Protocol Last Admin: 06/05/18 05:04 Dose: 10 mg/hr, 10 mls/hr Sodium Chloride (Ns Inj) 1,000 mls @ 70 mls/hr IV.CONT .[id number] [facility] Last Admin: 06/04/18 23:04 Dose: 70 mls/hr Lisinopril (Prinivil) 20 mg PO DAILY [facility] Last Admin: 06/05/18 08:31 Dose: 20 mg Sodium Chloride (Ns Flush) 2 ml IV.FLUSH PRN PRN PRN Reason: FLUSH AFTER USING IV ACCESS Sodium Chloride (Ns Flush) 2 ml IV.FLUSH BID [facility] Last Admin: 06/05/18 08:32 Dose: 2 ml Exam Vital signs: Vital Signs 06/04/18 18:25 06/04/18 18:31 06/04/18 18:47 Temperature 98.4 F Pulse Rate 166 H 133 H 137 H Respiratory Rate 20 18 22 Blood Pressure 157/115 H 136/99 H 135/99 H Pulse Oximetry 100 97 99 06/04/18 19:29 06/04/18 20:40 06/04/18 20:57 Temperature Pulse Rate 145 H 124 H 124 H Respiratory Rate 18 16 Blood Pressure 161/98 H 159/92 H 172/92 H Pulse Oximetry 98 96 06/04/18 21:46 06/04/18 22:30 06/05/18 00:00 Temperature 97.6 F Pulse Rate 108 H 108 H 108 H Respiratory Rate 18 Blood Pressure 161/78 H 151/90 H Pulse Oximetry 96 06/05/18 04:00 06/05/18 08:00 Temperature 97.9 F 98.0 F Pulse Rate 106 H 113 H Respiratory Rate 16 18 Blood Pressure 135/82 169/90 H Pulse Oximetry 95 92 L Intake & Output 06/04/18 06/05/18 06/05/18 18:59 06:59 18:59 Intake Total 845 / 845 Output Total 1800 / 1800 Balance -955 / -955 Weight 67.132 kg 107.8 kg Intake: IV 125 / 125 Cardizem Inj 125 MG In NS Inj 125 / 125 100 ML @ 5 MG/HR 5 mls/hr IV. CONT TITRATE PRN Rx#:[id number] Oral 720 / 720 Output: Urine 1800 / 1800 Other: Date of Last Bowel Movement 06/04/18 # Bowel Movements 0 Weight On Admission 107.5 kg - Constitutional no acute distress - Routine HEENT Exam Head: Present: normocephalic Eye: Present: PERRL ENT: Present: mucous membranes moist - Routine Neck Exam Present: full ROM - Routine Respiratory Exam Present: CTA bilaterally - Routine Cardiovascular Exam Present: S1, S2, tachycardia, irregular rhythm. Absent: murmur, gallop, rubs - Routine Abdominal Exam Present: normoactive bowel sounds - Routine Extremities Exam Present: full ROM, pulses intact, normal capillary refill. Absent: cyanosis, clubbing, edema - Routine Skin Exam Present: intact - Routine Neurological Exam Present: oriented X3 Results 06/05/18 06:01 06/05/18 06:01 Cardiac Enzymes 06/04/18 06/04/18 Range/Units 18:42 18:42 AST 83 H (15-37) U/L CK-MB (CK-2) 1.2 (0.5-3.6) ng/mL Troponin I Less than 0.02 L (0.02-0.05) ng/mL B-Natriuretic Peptide 115 H (0-100) pg/mL Coagulation 06/04/18 06/04/18 Range/Units 18:42 18:42 PT 11.0 (9.8-11.6) sec APTT 22.2 L (24.3-30.1) sec B-Natriuretic Peptide 115 H (0-100) pg/mL CBC 06/04/18 06/05/18 Range/Units 18:42 06:01 WBC 5.2 4.5 (4.0-11.0) th/mm3 RBC 4.32 L 4.15 L (4.50-5.90) mil/mm3 Hgb 13.7 13.3 (13.0-17.0) gm/dL Hct 41.4 39.3 (39.0-51.0) % Plt Count 123 L 121 L (150-450) th/mm3 Neut # (Auto) 4.3 (1.8-7.7) th/mm3 Lymph # (Auto) 0.6 L (1.0-4.8) th/mm3 [place] # (Auto) 0.2 (0.0-0.9) th/mm3 Eos # (Auto) 0.0 (0.0-0.4) th/mm3 Baso # (Auto) 0.0 (0.0-0.2) th/mm3 Comprehensive Metabolic Panel 06/04/18 06/05/18 Range/Units 18:42 06:01 Sodium 139 141 (136-145) meq/L Potassium 3.6 3.6 (3.5-5.1) meq/L Chloride 106 109 H (98-107) meq/L Carbon Dioxide 24.4 23.8 (21.0-32.0) meq/L BUN 16 15 (7-18) mg/dL Creatinine 1.34 H 1.07 (0.60-1.30) mg/dL Calcium 8.2 L 8.6 (8.5-10.1) mg/dL AST 83 H (15-37) U/L ALT 125 H (12-78) U/L Alkaline Phosphatase 77 (45-117) U/L Total Protein 7.4 (6.4-8.2) g/dL Albumin 3.7 (3.4-5.0) g/dL Intake and Output 06/04/18 06/05/18 06/05/18 22:59 06:59 14:59 Intake Total 825 / 825 Output Total 1400 / 1400 400 / 400 Balance -1380 / -1380 425 / 425 Intake: IV 105 / 105 Cardizem Inj 125 MG In NS Inj 105 / 105 100 ML @ 5 MG/HR 5 mls/hr IV. CONT TITRATE PRN Rx#:[id number] Oral 720 / 720 Output: Urine 1400 / 1400 400 / 400 Other: Date of Last Bowel Movement 06/04/18 # Bowel Movements 0 Weight 107.5 kg 107.8 kg Weight On Admission 107.5 kg - Imaging and Cardiology Imaging: Impressions Chest X-Ray 06/04/18 18:39 CONCLUSION: Negative examination. Chest CTA 06/04/18 19:32 CONCLUSION: 1. No evidence for pulmonary embolism. 2. Small right-sided pleural effusion. Assessment and Plan - Assessment (1) Atrial fibrillation, new onset Code(s): I48.91 - Unspecified atrial fibrillation Status: Acute (2) Hypertension Code(s): I10 - Essential (primary) hypertension Status: Chronic - Plan New onset of atrial fibrillation with rapid ventricular response, on Cardizem drip for rate control, switch to PO diltiazem. Will discontinue the Lovenox at this time and start patient on Xarelto 20 mg for anticoagulation. We will discuss cardioversion as an outpatient after 3 weeks of anticoagulation therapy. We will continue to monitor the patient during his hospitalization. We will order a TSH level to assess for hyperthyroidism. The patient was seen and evaluated by Dr. Scott who participated in care, management and decision-making. - Attending Attestation Patient seen and examined. I reviewed and agree with the evaluation and plan. Start anticoagulation with Xarelto. Switch diltiazem to PO. Will schedule cardioversion after 3 weeks of therapeutic anticoagulation.
[2018-06-05] MEDS: Sod Chloride 0.9% Inj 1,000 ML IV.CONT SCH (13:18)
--- NOTE | 2018-06-05 16:02 | P.PN ---
Subjective Interval history: In bed, palpitations overnight. No lightheadedness or sob. No chest pain. No fever or chills Has mild headache, no change in vision or focal deficit. Physical Exam Vital signs: Vital Signs 06/04/18 18:25 06/04/18 18:31 06/04/18 18:47 Temperature 98.4 F Pulse Rate 166 H 133 H 137 H Respiratory Rate 20 18 22 Blood Pressure 157/115 H 136/99 H 135/99 H Pulse Oximetry 100 97 99 06/04/18 19:29 06/04/18 20:40 06/04/18 20:57 Temperature Pulse Rate 145 H 124 H 124 H Respiratory Rate 18 16 Blood Pressure 161/98 H 159/92 H 172/92 H Pulse Oximetry 98 96 06/04/18 21:46 06/04/18 22:30 06/05/18 00:00 Temperature 97.6 F Pulse Rate 108 H 108 H 108 H Respiratory Rate 18 Blood Pressure 161/78 H 151/90 H Pulse Oximetry 96 06/05/18 04:00 06/05/18 08:00 06/05/18 12:00 Temperature 97.9 F 98.0 F 97.9 F Pulse Rate 106 H 114 H 112 H Respiratory Rate 16 18 16 Blood Pressure 135/82 169/90 H 151/92 H Pulse Oximetry 95 92 L 98 Intake & Output 06/04/18 06/05/18 06/05/18 18:59 06:59 18:59 Intake Total 845 / 845 1125 / 1125 Output Total 1800 / 1800 Balance -955 / -955 1125 / 1125 Weight 67.132 kg 107.8 kg Intake: IV 125 / 125 1125 / 1125 NS Inj 1,000 ML @ 70 mls/hr IV. 1000 / 1000 CONT .[id number] [facility] Rx#:[id number] Cardizem Inj 125 MG In NS Inj 125 / 125 125 / 125 100 ML @ 5 MG/HR 5 mls/hr IV. CONT TITRATE PRN Rx#:[id number] Oral 720 / 720 Output: Urine 1800 / 1800 Other: Date of Last Bowel Movement 06/04/18 06/04/18 # Bowel Movements 0 Weight On Admission 107.5 kg Narrative: GENERAL: 57 year old male in NAD, alert and oriented x3. CARDIOVASCULAR: Irregularly irregular rhythm. RESPIRATORY: No accessory muscle use. Clear to auscultation. Breath sounds equal bilaterally. GASTROINTESTINAL: Abdomen soft, non-tender, nondistended. Hepatic and splenic margins not palpable. MUSCULOSKELETAL: Extremities without clubbing, cyanosis, or edema. No obvious deformities. NEUROLOGICAL: Awake and alert. No obvious cranial nerve deficits. Motor grossly within normal limits. Normal speech. PSYCHIATRIC: Appropriate mood and affect; insight and judgment normal. Results - Labs CBC & Chem 7: 06/05/18 06:01 06/05/18 06:01 Laboratory Results - last 24 hr 06/04/18 06/04/18 06/04/18 18:42 18:42 18:42 WBC RBC Hgb Hct MCV MCH MCHC RDW Plt Count MPV Neut % (Auto) Lymph % (Auto) [place] % (Auto) Eos % (Auto) Baso % (Auto) Neut # (Auto) Lymph # (Auto) [place] # (Auto) Eos # (Auto) Baso # (Auto) WBC Differential Differential Comment PT INR APTT D-Dimer Quant (PE/DVT) 2.27 H Sodium Potassium Chloride Carbon Dioxide Anion Gap BUN Creatinine Estimated GFR Random Glucose Calcium Total Bilirubin AST ALT Alkaline Phosphatase Total Creatine Kinase CK-MB (CK-2) Troponin I B-Natriuretic Peptide 115 H Total Protein Albumin Lipase 190 TSH Urine Color Urine Clarity Urine pH Ur Specific [place] Urine Protein Urine Glucose (UA) Urine Ketones Urine Occult Blood Urine Nitrate Urine Bilirubin Urine Urobilinogen Ur Leukocyte Esterase Urine RBC Urine WBC Micro UA Comment Ur Microscopic Review Urine Culture Comments Urine Opiates Screen Ur Barbiturates Screen Ur Amphetamines Screen U Benzodiazepines Scrn Urine Cocaine Screen U Cannabinoids Screen 06/04/18 06/04/18 06/04/18 18:42 18:42 18:42 WBC 5.2 RBC 4.32 L Hgb 13.7 Hct 41.4 MCV 96.0 MCH 31.8 MCHC 33.1 RDW 15.3 Plt Count 123 L MPV 8.6 Neut % (Auto) 83.5 H Lymph % (Auto) 11.3 [place] % (Auto) 4.3 Eos % (Auto) 0.1 Baso % (Auto) 0.8 Neut # (Auto) 4.3 Lymph # (Auto) 0.6 L [place] # (Auto) 0.2 Eos # (Auto) 0.0 Baso # (Auto) 0.0 WBC Differential . Differential Comment Auto diff final PT 11.0 INR 1.1 APTT 22.2 L D-Dimer Quant (PE/DVT) Sodium 139 Potassium 3.6 Chloride 106 Carbon Dioxide 24.4 Anion Gap 9 BUN 16 Creatinine 1.34 H Estimated GFR 66 L Random Glucose 134 H Calcium 8.2 L Total Bilirubin 1.1 H AST 83 H ALT 125 H Alkaline Phosphatase 77 Total Creatine Kinase 217 CK-MB (CK-2) 1.2 Troponin I Less than 0.02 L B-Natriuretic Peptide Total Protein 7.4 Albumin 3.7 Lipase TSH Urine Color Urine Clarity Urine pH Ur Specific [place] Urine Protein Urine Glucose (UA) Urine Ketones Urine Occult Blood Urine Nitrate Urine Bilirubin Urine Urobilinogen Ur Leukocyte Esterase Urine RBC Urine WBC Micro UA Comment Ur Microscopic Review Urine Culture Comments Urine Opiates Screen Ur Barbiturates Screen Ur Amphetamines Screen U Benzodiazepines Scrn Urine Cocaine Screen U Cannabinoids Screen 06/04/18 06/04/18 06/05/18 19:45 19:45 06:01 WBC 4.5 RBC 4.15 L Hgb 13.3 Hct 39.3 MCV 94.8 MCH 32.0 MCHC 33.7 RDW 15.7 Plt Count 121 L MPV 8.8 Neut % (Auto) Lymph % (Auto) [place] % (Auto) Eos % (Auto) Baso % (Auto) Neut # (Auto) Lymph # (Auto) [place] # (Auto) Eos # (Auto) Baso # (Auto) WBC Differential Differential Comment PT INR APTT D-Dimer Quant (PE/DVT) Sodium Potassium Chloride Carbon Dioxide Anion Gap BUN Creatinine Estimated GFR Random Glucose Calcium Total Bilirubin AST ALT Alkaline Phosphatase Total Creatine Kinase CK-MB (CK-2) Troponin I B-Natriuretic Peptide Total Protein Albumin Lipase TSH Urine Color Yellow Urine Clarity Hazy H Urine pH 6.0 Ur Specific [place] 1.002 Urine Protein Negative Urine Glucose (UA) Negative Urine Ketones Negative Urine Occult Blood Negative Urine Nitrate Negative Urine Bilirubin Negative Urine Urobilinogen Less than 2 Ur Leukocyte Esterase Negative Urine RBC Less than 1 Urine WBC Less than 1 Micro UA Comment Culture not ind Ur Microscopic Review Not Reportable Urine Culture Comments Culture not ind Urine Opiates Screen Neg Ur Barbiturates Screen Neg Ur Amphetamines Screen Neg U Benzodiazepines Scrn Neg Urine Cocaine Screen Neg U Cannabinoids Screen Neg 06/05/18 06/05/18 06:01 06:01 WBC RBC Hgb Hct MCV MCH MCHC RDW Plt Count MPV Neut % (Auto) Lymph % (Auto) [place] % (Auto) Eos % (Auto) Baso % (Auto) Neut # (Auto) Lymph # (Auto) [place] # (Auto) Eos # (Auto) Baso # (Auto) WBC Differential Differential Comment PT INR APTT D-Dimer Quant (PE/DVT) Sodium 141 Potassium 3.6 Chloride 109 H Carbon Dioxide 23.8 Anion Gap 8 BUN 15 Creatinine 1.07 Estimated GFR 86 L Random Glucose 101 Calcium 8.6 Total Bilirubin AST ALT Alkaline Phosphatase Total Creatine Kinase CK-MB (CK-2) Troponin I B-Natriuretic Peptide Total Protein Albumin Lipase TSH 3.090 Urine Color Urine Clarity Urine pH Ur Specific [place] Urine Protein Urine Glucose (UA) Urine Ketones Urine Occult Blood Urine Nitrate Urine Bilirubin Urine Urobilinogen Ur Leukocyte Esterase Urine RBC Urine WBC Micro UA Comment Ur Microscopic Review Urine Culture Comments Urine Opiates Screen Ur Barbiturates Screen Ur Amphetamines Screen U Benzodiazepines Scrn Urine Cocaine Screen U Cannabinoids Screen - Imaging Impressions Chest X-Ray 06/04/18 18:39 CONCLUSION: Negative examination. Chest CTA 06/04/18 19:32 CONCLUSION: 1. No evidence for pulmonary embolism. 2. Small right-sided pleural effusion. Assessment and Plan - Plan A Fib with RVR Atrial fibrillation with rapid ventricular response EKG significant for A. fib with RVR, pulse 160, no ST segment elevations or depressions Received Diltiazem bolus Continue cardizem drip wean off as tolerated Cardiology consulted, appreciate assistance, seen by Renzo Echo pending Hypertension Continue home lisinopril YOLANDA Creatinine 1.34 on admission, repeat 1.07 on 06/05. IV fluid hydration Monitor renal function FEN Heart healthy diet Electrolytes: Monitor and replete as needed NS at 70 cc/hour DVT prophylaxis: Patient started on Xarelto per cardiology Code Status: Full Discussed with the patient, nurse
--- NOTE | 2018-06-05 16:59 | ECHRPT ---
Indication: CONCLUSIONS Normal left ventricular size. Mild concentric left ventricular hypertrophy. The left ventricular systolic function is normal with an estimated ejection fraction of 60%. No wal l motion abnormalities. The left atrial size is mild dilated. Mild bileaflet mitral valve prolapse. Moderate mitral valve regurgitation. There is mild tricuspid valve regurgitation. The estimated pulmonary arterial pressure is 42 mmHg. BP: / HR: Rhythm: Atrial fibrillation, Atrial flut ter MEASUREMENTS (Male / Female) Normal Values Technical Quality:Fair 2D ECHO LV Diastolic Diameter PLAX 4.4 cm 4.2 - 5.9 / 3.9 - 5.3 cm LV Systolic Diameter PLAX 3.2 cm IVS Diastolic Thickness 1.4 cm 0.6 - 1.0 / 0.6 - 0.9 cm LVPW Diastolic Thickness 1.4 cm 0.6 - 1.0 / 0.6 - 0.9 cm LV Relative Wall Thickness 0.6 RV Internal Dim ED PLAX 3.3 cm LVOT Diameter 2.5 cm Aortic Root Diameter 3.5 cm LA Systolic Diameter LX 4.6 cm 3.0 - 4.0 / 2.7 - 3.8 cm M-MODE AV Cusp Separation MM 2.3 cm DOPPLER AV Peak Velocity 100.8 cm/s AV Peak Gradient 4.1 mmHg AV Mean Gradient 2.0 mmHg AV Velocity Time Integral 13.3 cm LVOT Peak Velocity 71.0 cm/s LVOT Peak Gradient 2.0 mmHg LVOT Velocity Time Integral 7.9 cm AV Area Cont Eq vti 2.9 cm AV Area Cont Eq pk 3.5 cm Mitral E Point Velocity 92.3 cm/s LV E' Lateral Velocity 19.4 cm/s Mitral E to LV E' Lateral Ratio 4.8 LV E' Septal Velocity 11.7 cm/s Mitral E to LV E' Septal Ratio 7.9 TR Peak Velocity 300.0 cm/s TR Peak Gradient 36.0 mmHg Right Atrial Pressure 10.0 mmHg Pulmonary Artery Systolic Pressu 46.0 mmHg Right Ventricular Systolic Press 46.0 mmHg PV Peak Velocity 48.5 cm/s PV Peak Gradient 0.9 mmHg FINDINGS LEFT VENTRICLE Normal left ventricular size. Mild concentric left ventricular hypertrophy. The left ventricular systolic function is normal with an estimated ejection fraction of 60%. No wal l motion abnormalities. RIGHT VENTRICLE Normal right ventricular size and systolic function. LEFT ATRIUM The left atrial size is mild dilated. RIGHT ATRIUM The right atrial size is normal. ATRIAL SEPTUM No atrial level shunt is demonstrated by color flow Doppler interrogation. AORTA The aortic root and proximal ascending aorta are normal in size on limited imaging. MITRAL VALVE Mild bileaflet mitral valve prolapse. Moderate mitral valve regurgitation. AORTIC VALVE Trileaflet aortic valve. No aortic valve stenosis or regurgitation. TRICUSPID VALVE There is mild tricuspid valve regurgitation. The estimated pulmonary arterial pressure is 42 mmHg. PULMONARY VALVE No pulmonary valve regurgitation or stenosis. PERICARDIUM No pericardial effusion. Bernard Brownlee MD (Electronically Signed) Final Date:05 June 2018 16:58
[2018-06-05] MEDS: Rivaroxaban 20 MG Tablet PO SCH (18:49)
--- NOTE | 2018-06-05 20:27 | ECG ---
Date Performed: 06/04/2018 Time Performed: 18:35:00 PTAGE: 57 years EKG: ATRIAL FIBRILLATION WITH RAPID VENTRICULAR RESPONSE WITH ABERRANT CONDUCTION OR VENTRICULAR PREMATURE COMPLEXES NONSPECIFIC T-WAVE ABNORMALITY ABNORMAL ECG Compared to PREVIOUS TRACING , ATRIAL FIBRILLATION IS NEW DOCTOR: Brain Story Interpretating Date/Time 06/05/2018 20:25:28
[2018-06-05] MEDS ORDERED: Acetaminophen 325 MG Tablet PO PRN (21:30)
--- NOTE | 2018-06-05 22:36 | XR ---
EXAM DATE: 06/05/2018 10:08 PM EDT AGE/SEX: 57 years / Male INDICATIONS: Short of breath. CLINICAL DATA: This is the patient's subsequent encounter. Patient reports that signs and symptoms h ave been present for 3 days and indicates a pain score of 1/10. MEDICAL/SURGICAL HISTORY: . Cardiovascular disease. Hypertension. None. [place] [facility] [place]. . FINDINGS: Mild edema pattern. No significant effusion. Heart size within normal limits. No pneumothorax. CONCLUSION: Mild perihilar and basilar airspace disease most characteristic of edema. No significant effusion or pneumothorax. Electronically signed by: Idris Franklin MD 06/05/2018 10:35 PM EDT
[2018-06-05] MEDS: Metoprolol Tartrate 50 MG Tablet PO SCH (23:43)
[2018-06-06] MEDS: Metoprolol Tartrate 50 MG Tablet PO SCH (08:17)
[2018-06-06] MEDS: Lisinopril 20 MG Tablet PO SCH (08:27)
--- NOTE | 2018-06-06 09:23 | P.PN ---
Subjective Interval history: HR in 120s start PO cardizem wean off cardizem drip. Patient was noted with low BP last night and was off cardizem drip , he was very symptomatic at that time diaphoretic, nausea, lightheadedness, sob. Kidney function improved Patient with sob and lightheadedness in the morning. Was also with palpitations. No chest pain . No fever or chills. No cough Some nausea and diaphoresis in the morning and last night when his BP was noted low. He is able to eat thereafter Physical Exam Vital signs: Vital Signs 06/05/18 12:00 06/05/18 16:00 06/05/18 20:00 Temperature 97.9 F 98.3 F 98.5 F Pulse Rate 100 H 119 H 107 H Respiratory Rate 16 16 18 Blood Pressure 151/92 H 131/88 150/89 H Pulse Oximetry 98 96 94 L 06/05/18 23:58 06/06/18 00:00 06/06/18 04:00 Temperature 98.1 F 91.8 F L Pulse Rate 112 H 110 H 94 H Respiratory Rate 18 18 Blood Pressure 122/77 128/86 Pulse Oximetry 91 L 93 L 93 L 06/06/18 08:00 Temperature 98.1 F Pulse Rate 95 H Respiratory Rate 20 Blood Pressure 127/86 Pulse Oximetry 97 Intake & Output 06/05/18 06/06/18 06/06/18 18:59 06:59 18:59 Intake Total 2085 / 2085 1305 / 1305 Output Total 1200 / 1200 1225 / 1225 Balance 885 / 885 80 / 80 Weight 115.5 kg Intake: IV 1125 / 1125 1065 / 1065 NS Inj 1,000 ML @ 70 mls/hr IV. 1000 / 1000 1000 / 1000 CONT .[id number] [facility] Rx#:[id number] Cardizem Inj 125 MG In NS Inj 125 / 125 65 / 65 100 ML @ 5 MG/HR 5 mls/hr IV. CONT TITRATE PRN Rx#:[id number] Oral 960 / 960 240 / 240 Output: Urine 1200 / 1200 1225 / 1225 Other: Date of Last Bowel Movement 06/04/18 06/06/18 # Bowel Movements 0 0 Narrative: GENERAL: 57 year old male in NAD, alert and oriented x3. CARDIOVASCULAR: Irregularly irregular rhythm. RESPIRATORY: No accessory muscle use. Clear to auscultation. Breath sounds equal bilaterally. GASTROINTESTINAL: Abdomen soft, non-tender, nondistended. Hepatic and splenic margins not palpable. MUSCULOSKELETAL: Extremities without clubbing, cyanosis, or edema. No obvious deformities. NEUROLOGICAL: Awake and alert. No obvious cranial nerve deficits. Motor grossly within normal limits. Normal speech. PSYCHIATRIC: Appropriate mood and affect; insight and judgment normal. Results - Labs CBC & Chem 7: 06/05/18 06:01 06/05/18 06:01 Laboratory Results - last 24 hr 06/05/18 06/06/18 06:01 02:01 POC Glucose 129 H TSH 3.090 - Imaging Impressions Chest X-Ray 06/05/18 22:08 CONCLUSION: Mild perihilar and basilar airspace disease most characteristic of edema. No significant effusion or pneumothorax. Assessment and Plan - Plan A Fib with RVR Atrial fibrillation with rapid ventricular response EKG significant for A. fib with RVR, pulse 160, no ST segment elevations or depressions Received Diltiazem bolus Continue cardizem drip wean off as tolerated. Start PO cardizem. Monitor on telemetry Cardiology consulted, appreciate assistance, seen by Dr Sonia Trejo pending Xarelto 20 mg po daily at DC as anticoagulation Hypertension Continue home lisinopril YOLANDA Creatinine 1.34 on admission, repeat 1.07 on 06/05. IV fluid hydration Monitor renal function FEN Heart healthy diet Electrolytes: Monitor and replete as needed NS at 70 cc/hour DVT prophylaxis: Patient started on Xarelto per cardiology Code Status: Full Discussed with the patient, nurse, cardiology service Discussed with cardiology poss DC in 1-2 days if improves and if HR is better controlled on PO meds. Follow up 2D ECHO results. Give Xarelto 20 mg po daily at DC as anticoagulation.
[2018-06-06] MEDS ORDERED: dilTIAZem 30 MG Tablet PO ONE (10:00)
--- NOTE | 2018-06-06 10:24 | P.PN ---
Subjective Interval history: Patient is resting comfortably in bed, family at bedside. Patient had some SOB last night due to edema on CXR and was given Lasix with relief. Experienced some lightheadedness this morning, resolved with PO Cardizem. Patient is otherwise doing well. No nausea, vomiting, headache, vision changes, chest pain , SOB this am. Physical Exam Vital signs: Vital Signs 06/05/18 12:00 06/05/18 16:00 06/05/18 20:00 Temperature 97.9 F 98.3 F 98.5 F Pulse Rate 100 H 119 H 107 H Respiratory Rate 16 16 18 Blood Pressure 151/92 H 131/88 150/89 H Pulse Oximetry 98 96 94 L 06/05/18 23:58 06/06/18 00:00 06/06/18 04:00 Temperature 98.1 F 91.8 F L Pulse Rate 112 H 110 H 94 H Respiratory Rate 18 18 Blood Pressure 122/77 128/86 Pulse Oximetry 91 L 93 L 93 L 06/06/18 08:00 Temperature 98.1 F Pulse Rate 95 H Respiratory Rate 20 Blood Pressure 127/86 Pulse Oximetry 97 Intake & Output 06/05/18 06/06/18 06/06/18 18:59 06:59 18:59 Intake Total 2085 / 2085 1305 / 1305 Output Total 1200 / 1200 1225 / 1225 Balance 885 / 885 80 / 80 Weight 115.5 kg Intake: IV 1125 / 1125 1065 / 1065 NS Inj 1,000 ML @ 70 mls/hr IV. 1000 / 1000 1000 / 1000 CONT .[id number] [facility] Rx#:[id number] Cardizem Inj 125 MG In NS Inj 125 / 125 65 / 65 100 ML @ 5 MG/HR 5 mls/hr IV. CONT TITRATE PRN Rx#:[id number] Oral 960 / 960 240 / 240 Output: Urine 1200 / 1200 1225 / 1225 Other: Date of Last Bowel Movement 06/04/18 06/06/18 # Bowel Movements 0 0 Narrative: GENERAL: 57 year old male in NAD, alert and oriented x3. CARDIOVASCULAR: Irregularly irregular rhythm. RESPIRATORY: No accessory muscle use. Clear to auscultation. Breath sounds equal bilaterally. GASTROINTESTINAL: Abdomen soft, non-tender, nondistended. Hepatic and splenic margins not palpable. MUSCULOSKELETAL: Extremities without clubbing, cyanosis, or edema. No obvious deformities. NEUROLOGICAL: Awake and alert. No obvious cranial nerve deficits. Motor grossly within normal limits. Normal speech. PSYCHIATRIC: Appropriate mood and affect; insight and judgment normal. Results - Labs CBC & Chem 7: 06/05/18 06:01 06/05/18 06:01 Laboratory Results - last 24 hr 06/05/18 06/06/18 06:01 02:01 POC Glucose 129 H TSH 3.090 - Imaging Impressions Chest X-Ray 06/05/18 22:08 CONCLUSION: Mild perihilar and basilar airspace disease most characteristic of edema. No significant effusion or pneumothorax. Assessment and Plan - Plan Atrial fibrillation with rapid ventricular response EKG significant for A. fib with RVR, pulse 160, no ST segment elevations or depressions Received Diltiazem bolus Continue cardizem drip wean off as tolerated. tart PO cardizem. Monitor on telemetry Cardiology consulted, appreciate assistance, seen by Dr Scott Echo results: Moderate MR Hypertension Continue home lisinopril YOLANDA Creatinine 1.34 on admission, repeat 1.07 on 06/05. IV fluid hydration Monitor renal function FEN Heart healthy diet Electrolytes: Monitor and replete as needed NS at 70 cc/hour DVT prophylaxis: Patient started on Xarelto per cardiology Code Status: Full Discussed Condition With: Patient, family Discharge Planning: Pending cardio clearance
[2018-06-06] MEDS ORDERED: dilTIAZem 30 MG Tablet PO SCH (13:00)
--- NOTE | 2018-06-06 16:33 | P.PNCA ---
Subjective Interval history: Patient currently denies any chest pain, pressure, dizziness, edema or shortness of breath. Patient did state that last night he had an episode where he developed palpitations and shortness of breath. Shortness of breath has resolved but he still feels palpitations on occasion. Medications and Allergies Allergies Allergy/AdvReac Type Severity Reaction Status Date / Time No Known Allergies Allergy Verified 06/04/18 18:27 Home Medications Medication Instructions Recorded Confirmed Type aspirin 81 mg PO DAILY 06/04/18 06/04/18 History lisinopril 20 mg PO DAILY 06/04/18 06/04/18 History Active Medications: Active Medications Acetaminophen (Tylenol) 650 mg PO Q4H PRN PRN Reason: PAIN/ HEDACHE Last Admin: 06/05/18 23:48 Dose: 650 mg Furosemide (Lasix Inj) 20 mg IV.PUSH DAILY [facility] Last Admin: 06/06/18 08:11 Dose: 20 mg Metoprolol Tartrate (Lopressor) 100 mg PO BID [facility] Rivaroxaban (Xarelto) 20 mg PO DAILY@1800 [facility] Last Admin: 06/05/18 18:49 Dose: 20 mg Sodium Chloride (Ns Flush) 2 ml IV.FLUSH PRN PRN PRN Reason: FLUSH AFTER USING IV ACCESS Sodium Chloride (Ns Flush) 2 ml IV.FLUSH BID [facility] Last Admin: 06/06/18 08:26 Dose: 2 ml Physical Exam Vital signs: Vital Signs 06/05/18 20:00 06/05/18 23:58 06/06/18 00:00 Temperature 98.5 F 98.1 F Pulse Rate 107 H 112 H 110 H Respiratory Rate 18 18 Blood Pressure 150/89 H 122/77 Pulse Oximetry 94 L 91 L 93 L 06/06/18 04:00 06/06/18 08:00 06/06/18 12:00 Temperature 91.8 F L 98.1 F 97.7 F Pulse Rate 94 H 124 H 111 H Respiratory Rate 18 20 20 Blood Pressure 128/86 127/86 127/97 H Pulse Oximetry 93 L 97 100 06/06/18 14:22 Temperature Pulse Rate Respiratory Rate Blood Pressure Pulse Oximetry 93 L Intake & Output 06/05/18 06/06/18 06/06/18 18:59 06:59 18:59 Intake Total 2085 / 2085 1305 / 1305 Output Total 1200 / 1200 1225 / 1225 Balance 885 / 885 80 / 80 Weight 115.5 kg Intake: IV 1125 / 1125 1065 / 1065 NS Inj 1,000 ML @ 70 mls/hr IV. 1000 / 1000 1000 / 1000 CONT .[id number] [facility] Rx#:[id number] Cardizem Inj 125 MG In NS Inj 125 / 125 65 / 65 100 ML @ 5 MG/HR 5 mls/hr IV. CONT TITRATE PRN Rx#:[id number] Oral 960 / 960 240 / 240 Output: Urine 1200 / 1200 1225 / 1225 Other: Date of Last Bowel Movement 06/04/18 06/06/18 06/06/18 # Bowel Movements 0 0 - Constitutional no acute distress - Routine HEENT Exam Head: Present: normocephalic Eye: Present: PERRL ENT: Present: mucous membranes moist - Routine Neck Exam Present: full ROM - Routine Respiratory Exam Present: CTA bilaterally - Routine Cardiovascular Exam Present: S1, S2, irregular rhythm. Absent: murmur, gallop, rubs - Routine Abdominal Exam Present: normoactive bowel sounds - Routine Extremities Exam Present: full ROM, pulses intact, normal capillary refill. Absent: cyanosis, clubbing, edema - Routine Skin Exam Present: intact - Routine Neurological Exam Present: oriented X3 - Detailed Neurological Exam: Coma Scale Eye Opening: Spontaneous Verbal Response: Oriented Motor Response: Obey commands [place] Coma Scale Total: 15 - Routine Psychiatric Exam Present: normal affect Results 06/05/18 06:01 06/05/18 06:01 Cardiac Enzymes 06/04/18 06/04/18 Range/Units 18:42 18:42 AST 83 H (15-37) U/L CK-MB (CK-2) 1.2 (0.5-3.6) ng/mL Troponin I Less than 0.02 L (0.02-0.05) ng/mL B-Natriuretic Peptide 115 H (0-100) pg/mL Coagulation 06/04/18 06/04/18 Range/Units 18:42 18:42 PT 11.0 (9.8-11.6) sec APTT 22.2 L (24.3-30.1) sec B-Natriuretic Peptide 115 H (0-100) pg/mL CBC 06/04/18 06/05/18 Range/Units 18:42 06:01 WBC 5.2 4.5 (4.0-11.0) th/mm3 RBC 4.32 L 4.15 L (4.50-5.90) mil/mm3 Hgb 13.7 13.3 (13.0-17.0) gm/dL Hct 41.4 39.3 (39.0-51.0) % Plt Count 123 L 121 L (150-450) th/mm3 Neut # (Auto) 4.3 (1.8-7.7) th/mm3 Lymph # (Auto) 0.6 L (1.0-4.8) th/mm3 [place] # (Auto) 0.2 (0.0-0.9) th/mm3 Eos # (Auto) 0.0 (0.0-0.4) th/mm3 Baso # (Auto) 0.0 (0.0-0.2) th/mm3 Comprehensive Metabolic Panel 06/04/18 06/05/18 Range/Units 18:42 06:01 Sodium 139 141 (136-145) meq/L Potassium 3.6 3.6 (3.5-5.1) meq/L Chloride 106 109 H (98-107) meq/L Carbon Dioxide 24.4 23.8 (21.0-32.0) meq/L BUN 16 15 (7-18) mg/dL Creatinine 1.34 H 1.07 (0.60-1.30) mg/dL Calcium 8.2 L 8.6 (8.5-10.1) mg/dL AST 83 H (15-37) U/L ALT 125 H (12-78) U/L Alkaline Phosphatase 77 (45-117) U/L Total Protein 7.4 (6.4-8.2) g/dL Albumin 3.7 (3.4-5.0) g/dL Intake and Output 06/06/18 06/06/18 06/06/18 06:59 14:59 22:59 Intake Total 1305 / 1305 Output Total 1225 / 1225 Balance 80 / 80 Intake: IV 1065 / 1065 NS Inj 1,000 ML @ 70 mls/hr IV. 1000 / 1000 CONT .[id number] [facility] Rx#:[id number] Cardizem Inj 125 MG In NS Inj 65 / 65 100 ML @ 5 MG/HR 5 mls/hr IV. CONT TITRATE PRN Rx#:[id number] Oral 240 / 240 Output: Urine 1225 / 1225 Other: Date of Last Bowel Movement 06/06/18 # Bowel Movements 0 Weight 115.5 kg - Imaging and Cardiology Imaging: Impressions Chest X-Ray 06/04/18 18:39 CONCLUSION: Negative examination. Chest CTA 06/04/18 19:32 CONCLUSION: 1. No evidence for pulmonary embolism. 2. Small right-sided pleural effusion. Chest X-Ray 06/05/18 22:08 CONCLUSION: Mild perihilar and basilar airspace disease most characteristic of edema. No significant effusion or pneumothorax. Assessment and Plan - Assessment (1) Atrial fibrillation, new onset Code(s): I48.91 - Unspecified atrial fibrillation Status: Acute (2) Hypertension Code(s): I10 - Essential (primary) hypertension Status: Chronic - Plan Patient remains in atrial fib; continue and titrate metoprolol for rate control. Continue Xarelto for anticoagulation. Continue to monitor patient on telemetry. We will discontinue the lisinopril at this time due to a hypotensive episode. 2D echo shows preserved left ventricular function with EF of 60%, moderate mitral valve regurgitation and mild tricuspid valve regurgitation. We will proceed with cardioversion as an outpatient after 3 weeks of anticoagulation therapy. Hyperthyroidism has been ruled out, TSH level within normal limits. Increase activity as tolerated. We will continue to follow the patient during his hospitalization. The patient was seen and evaluated by Dr. Scott who participated in care, management and decision-making. - Attending Attestation Patient seen and examined. I reviewed and agree with the evaluation and plan as presented. Continue rate control and anticoagulation. DC cardioversion in 3 weeks.
[2018-06-06] MEDS: Rivaroxaban 20 MG Tablet PO SCH (17:07)
[2018-06-06] MEDS: Metoprolol Tartrate 100 MG Tablet PO SCH (21:16)
[2018-06-07] MEDS: Metoprolol Tartrate 100 MG Tablet PO SCH ×2 (08:52→21:06)
--- NOTE | 2018-06-07 12:41 | P.PN ---
Subjective Interval history: Follow up Atrial Fibrillation reports occasional cough productive of yellow/brown phlegm Physical Exam Vital signs: Vital Signs 06/06/18 14:22 06/06/18 16:00 06/06/18 20:00 Temperature 97.6 F Pulse Rate 104 H 111 H Respiratory Rate 17 Blood Pressure 139/103 H Pulse Oximetry 93 L 97 06/06/18 22:16 06/06/18 23:49 06/07/18 00:00 Temperature 97.8 F Pulse Rate 84 104 H Respiratory Rate 18 Blood Pressure 136/86 Pulse Oximetry 96 96 06/07/18 04:00 06/07/18 08:00 Temperature 97.9 F Pulse Rate 101 H 103 H Respiratory Rate 18 Blood Pressure 134/88 Pulse Oximetry 99 Intake & Output 06/06/18 06/07/18 06/07/18 18:59 06:59 18:59 Intake Total 480 / 480 Balance 480 / 480 Weight 111.6 kg Intake: Oral 480 / 480 Other: # Voids 3 Date of Last Bowel Movement 06/06/18 06/07/18 06/07/18 # Bowel Movements 1 Narrative: GENERAL: 57 year old male in NAD, alert and oriented x3. CARDIOVASCULAR: Irregularly irregular rhythm. RESPIRATORY: No accessory muscle use. Clear to auscultation. Breath sounds equal bilaterally. GASTROINTESTINAL: Abdomen soft, non-tender, nondistended. MUSCULOSKELETAL: Extremities without clubbing, cyanosis, or edema. No obvious deformities. NEUROLOGICAL: Awake and alert. No focal deficits. Motor grossly within normal limits. Normal speech. PSYCHIATRIC: Appropriate mood and affect; insight and judgment normal. Results - Labs CBC & Chem 7: 06/05/18 06:01 06/05/18 06:01 Assessment and Plan - Assessment (1) Atrial fibrillation, new onset Code(s): I48.91 - Unspecified atrial fibrillation Status: Acute Plan: Atrial fibrillation with rapid ventricular response On admission EKG significant for A. fib with RVR, pulse 160, no ST segment elevations or depressions Received Diltiazem bolus, Cardizem drip weaned off as tolerated. Start PO cardizem. Monitor on telemetry Cardiology consulted, appreciate assistance, seen by Dr Scott Echo pending preserved left ventricular function with EF of 60%, moderate mitral valve regurgitation and mild tricuspid valve regurgitation. Patient's Cardizem was DC'd and metoprolol started Continue Metoprolol 100 mg PO BID Hyperthyroidism has been ruled out, TSH level within normal limits. Increase activity as tolerated. Xarelto 20 mg po daily at DC as anticoagulation Cardiology planning to proceed with cardioversion as an outpatient after 3 weeks of anticoagulation therapy. Hypertension DC lisinopril due to hypotension YOLANDA Creatinine 1.34 on admission, repeat 1.07 on 06/05. IV fluid hydration initially now DC'd Monitor renal function Cough productive of phlegm afebrile, last CBC showed WBC 4.5 sputum culture CXR in AM CBC in AM Heart healthy diet Electrolytes: Monitor and replete as needed DC IVF DVT prophylaxis: Patient started on Xarelto per cardiology Code Status: Full Discussed with the patient, nurse, supervising physician Dr. Jensen Discussed with cardiology poss DC in 1-2 days if improves and if HR is better controlled on PO meds. Give Xarelto 20 mg po daily at DC as anticoagulation.
--- NOTE | 2018-06-07 14:51 | P.PNCA ---
Subjective Interval history: Patient denies any CP, pressure, palpitations, dizziness, edema or SOB. Medications and Allergies Allergies Allergy/AdvReac Type Severity Reaction Status Date / Time No Known Allergies Allergy Verified 06/04/18 18:27 Home Medications Medication Instructions Recorded Confirmed Type aspirin 81 mg PO DAILY 06/04/18 06/04/18 History lisinopril 20 mg PO DAILY 06/04/18 06/04/18 History Active Medications: Active Medications Acetaminophen (Tylenol) 650 mg PO Q4H PRN PRN Reason: PAIN/ HEDACHE Last Admin: 06/05/18 23:48 Dose: 650 mg Furosemide (Lasix Inj) 20 mg IV.PUSH DAILY [facility] Last Admin: 06/07/18 08:52 Dose: 20 mg Metoprolol Tartrate (Lopressor) 100 mg PO BID [facility] Last Admin: 06/07/18 08:52 Dose: 100 mg Rivaroxaban (Xarelto) 20 mg PO DAILY@1800 [facility] Last Admin: 06/06/18 17:07 Dose: 20 mg Sodium Chloride (Ns Flush) 2 ml IV.FLUSH PRN PRN PRN Reason: FLUSH AFTER USING IV ACCESS Sodium Chloride (Ns Flush) 2 ml IV.FLUSH BID [facility] Last Admin: 06/07/18 09:00 Dose: 2 ml Physical Exam Vital signs: Vital Signs 06/06/18 16:00 06/06/18 20:00 06/06/18 22:16 Temperature 97.6 F Pulse Rate 104 H 111 H Respiratory Rate 17 Blood Pressure 139/103 H Pulse Oximetry 97 96 06/06/18 23:49 06/07/18 00:00 06/07/18 04:00 Temperature 97.8 F 97.9 F Pulse Rate 84 104 H 101 H Respiratory Rate 18 18 Blood Pressure 136/86 134/88 Pulse Oximetry 96 99 06/07/18 08:00 06/07/18 12:00 06/07/18 12:57 Temperature Pulse Rate 103 H 125 H Respiratory Rate Blood Pressure Pulse Oximetry 99 Intake & Output 06/06/18 06/07/18 06/07/18 18:59 06:59 18:59 Intake Total 480 / 480 Balance 480 / 480 Weight 111.6 kg Intake: Oral 480 / 480 Other: # Voids 3 Date of Last Bowel Movement 06/06/18 06/07/18 06/07/18 # Bowel Movements 1 - Constitutional no acute distress - Routine HEENT Exam Head: Present: normocephalic Eye: Present: PERRL ENT: Present: mucous membranes moist - Routine Neck Exam Present: full ROM - Routine Respiratory Exam Present: CTA bilaterally - Routine Cardiovascular Exam Present: S1, S2, irregular rhythm - Routine Abdominal Exam Present: normoactive bowel sounds - Routine Extremities Exam Present: full ROM, pulses intact, normal capillary refill. Absent: cyanosis, clubbing, edema - Routine Skin Exam Present: intact - Routine Neurological Exam Present: oriented X3 - Detailed Neurological Exam: Coma Scale Eye Opening: Spontaneous Verbal Response: Oriented Motor Response: Obey commands [place] Coma Scale Total: 15 - Routine Psychiatric Exam Present: normal affect Results 06/05/18 06:01 06/05/18 06:01 Intake and Output 06/06/18 06/07/18 06/07/18 22:59 06:59 14:59 Intake Total 480 / 480 Balance 480 / 480 Intake: Oral 480 / 480 Other: # Voids 3 Date of Last Bowel Movement 06/06/18 06/07/18 06/07/18 # Bowel Movements 1 Weight 111.6 kg - Imaging and Cardiology Imaging: Impressions Chest X-Ray 06/05/18 22:08 CONCLUSION: Mild perihilar and basilar airspace disease most characteristic of edema. No significant effusion or pneumothorax. Assessment and Plan - Assessment (1) Atrial fibrillation, new onset Code(s): I48.91 - Unspecified atrial fibrillation Status: Acute (2) Hypertension Code(s): I10 - Essential (primary) hypertension Status: Chronic - Plan Patient remains in atrial fibrillation controlled rate. Continue anticoagulation with Xarelto. Blood pressure remains stable, continue current treatment plan We will place patient on Digoxin for better rate control. 2D echo shows preserved left ventricular function with EF of 60%, moderate mitral valve regurgitation and mild tricuspid valve regurgitation. We will proceed with cardioversion as an outpatient after 3 weeks of anticoagulation therapy. Increase activity as tolerated. Patient cleared from a cardiac standpoint for discharge. The patient was seen and evaluated by Dr. Scott who participated in care, management and decision-making. - Attending Attestation Patient seen and examined. I reviewed and agree with the evaluation and plan as presented. Rate controlled, continue Xarelto. OK to discharge home. Will schedule outpt f/u after discharge.
[2018-06-07] MEDS: Digoxin 125 MCG Tablet PO SCH (15:38)
--- NOTE | 2018-06-07 17:02 | P.DS ---
Date of admission: 06/04/18 22:17 Primary care physician: Daryn Hood MD Attending physician on discharge: Keyla Jensen Anticipated date of discharge: 06/08/18 Brief History from admission: 57-year-old male with past medical history significant for hypertension presents to the emergency department from urgent care for the evaluation of atrial fibrillation with rapid ventricular response. The patient was recently treated with Levaquin for a sinus infection and was given albuterol nebulizer treatments. He reports he had a neb this a.m. when he started to develop palpitations and a feeling in his chest as if he had to cough but could not. He endorses associated nausea. He denies any dizziness or shortness of breath. No syncopal episodes. 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 No chest pain or shortness of breath. No abdominal pain. No vomiting/diarrhea. No lateralizing signs/symptoms. No fever/chills. Patient update on day of discharge: Patient reports feeling well ready to go home, no longer having cough DS: Diagnosis - Discharge Diagnosis (1) Atrial fibrillation, new onset Status: Acute DS: Medications - Discharge Medications Prescriptions: digoxin 125 mcg PO DAILY 30 Days #30 tab metoprolol tartrate 100 mg PO BID 30 Days #60 tab rivaroxaban [Xarelto] 20 mg PO DAILY@1800 30 Days tab DS: Summary Hospital Course: Atrial fibrillation with rapid ventricular response On admission EKG significant for A. fib with RVR, pulse 160, no ST segment elevations or depressions Received Diltiazem bolus, Cardizem drip weaned off as tolerated. Start PO cardizem. Monitor on telemetry Cardiology consulted, appreciate assistance, seen by Dr Scott Echo pending preserved left ventricular function with EF of 60%, moderate mitral valve regurgitation and mild tricuspid valve regurgitation. Patient's Cardizem was DC'd and metoprolol started Continue Metoprolol 100 mg PO BID Hyperthyroidism has been ruled out, TSH level within normal limits. Increase activity as tolerated. Xarelto 20 mg po daily at DC as anticoagulation cardiology added digoxin daily Cardiology planning to proceed with cardioversion as an outpatient after 3 weeks of anticoagulation therapy. Hypertension DC lisinopril due to hypotension YOLANDA Creatinine 1.34 on admission, repeat 1.07 on 06/05. IV fluid hydration initially now DC'd Monitor renal function Cough- resolved afebrile, last CBC showed WBC 4.5 sputum culture sent results pending, patient to follow up with PCP for results repeat CXR cancelled patient reports that he is no longer having cough Chest X-Ray 06/04/18 Negative examination. Chest CTA 06/04/18 1. No evidence for pulmonary embolism. 2. Small right-sided pleural effusion. Chest X-Ray 06/05/18 Mild perihilar and basilar airspace disease most characteristic of edema. No significant effusion or pneumothorax. Heart healthy diet Electrolytes: Monitor and replete as needed DC IVF DVT prophylaxis: Patient started on Xarelto per cardiology Code Status: Full Discussed with the patient, nurse, supervising physician Dr. Jensen - Time Spent with Patient Total time spent providing and/or coordinating discharge services: Greater than 30 minutes - Quality: VTE Deep Vein Thrombosis/Pulmonary Embolism Present on Admission: No Exam Vital signs: Vital Signs 06/06/18 20:00 06/06/18 22:16 06/06/18 23:49 Temperature 97.6 F 97.8 F Pulse Rate 111 H 84 Respiratory Rate 17 18 Blood Pressure 139/103 H 136/86 Pulse Oximetry 97 96 96 06/07/18 00:00 06/07/18 04:00 06/07/18 08:00 Temperature 97.9 F Pulse Rate 104 H 101 H 103 H Respiratory Rate 18 Blood Pressure 134/88 Pulse Oximetry 99 06/07/18 12:00 06/07/18 12:57 06/07/18 16:58 Temperature Pulse Rate 125 H 112 H Respiratory Rate Blood Pressure Pulse Oximetry 99 Intake & Output 06/06/18 06/07/18 06/07/18 18:59 06:59 18:59 Intake Total 480 / 480 Balance 480 / 480 Weight 111.6 kg Intake: Oral 480 / 480 Other: # Voids 3 Date of Last Bowel Movement 06/06/18 06/07/18 06/07/18 # Bowel Movements 1 Narrative: GENERAL: 57 year old male in NAD, alert and oriented x3. CARDIOVASCULAR: Irregularly irregular rhythm. RESPIRATORY: No accessory muscle use. Clear to auscultation. Breath sounds equal bilaterally. GASTROINTESTINAL: Abdomen soft, non-tender, nondistended. MUSCULOSKELETAL: Extremities without clubbing, cyanosis, or edema. No obvious deformities. NEUROLOGICAL: Awake and alert. No focal deficits. Motor grossly within normal limits. Normal speech. PSYCHIATRIC: Appropriate mood and affect; insight and judgment normal. Results Procedures completed during hospitalization: None - Impressions ITS Impressions Chest CTA 06/04/18 19:32 CONCLUSION: 1. No evidence for pulmonary embolism. 2. Small right-sided pleural effusion. Chest X-Ray 06/05/18 22:08 CONCLUSION: Mild perihilar and basilar airspace disease most characteristic of edema. No significant effusion or pneumothorax. Discharge Plan - Discharge Disposition Patient Disposition: 01 Discharge Home - Discharge Condition Condition: Stable - Discharge Order Discharge Orders: Discharge Order (Routine); Ordered 06/08/18 Ordered By: Marielle Zavala - Discharge Details Anticipated Discharge Date: 06/08/18 - Physicians Team Primary Care Provider: Daryn Hood Attending Provider: Keyla Jensen Other Providers: Joanne Scott MD
[2018-06-07] MEDS: Rivaroxaban 20 MG Tablet PO SCH (17:52)
[2018-06-08] MEDS: Digoxin 125 MCG Tablet PO SCH (08:20)
[2018-06-08] MEDS: Metoprolol Tartrate 100 MG Tablet PO SCH (08:20)
[2018-06-08 08:41] LABS: Baso # (Auto) 0.1 th/mm3 (0.0-0.2); Baso % (Auto) 1.3 % (0.0-2.0); Eos # (Auto) 0.1 th/mm3 (0.0-0.4); Eos % (Auto) 2.1 % (0.0-4.0); Hematocrit 42.6 % (39.0-51.0); Hemoglobin 14.6 gm/dL (13.0-17.0); Lymph # (Auto) 1.1 th/mm3 (1.0-4.8); Mean Corpuscular HGB Conc 34.3 % (32.0-36.0); Mean Corpuscular Hemoglobin 32.6 pg (27.0-34.0); Mean Corpuscular Volume 95.1 fL (80.0-100.0); Mean Platelet Volume 8.8 fL (7.0-11.0); Mono # (Auto) 0.3 th/mm3 (0.0-0.9); Mono % (Auto) 8.8 % (0.0-8.0); Neut # (Auto) 2.4 th/mm3 (1.8-7.7); Neut % (Auto) 60.8 % (16.0-70.0); Platelet Count 98 th/mm3 (150-450); Red Blood Count 4.48 mil/mm3 (4.50-5.90); Red Cell Distribution Width 15.8 % (11.6-17.2); White Blood Count 3.9 th/mm3 (4.0-11.0)
[2018-06-08 09:10] VITALS: BP 145/97; PULSE 117; RESP 20; TEMP 97.2
--- NOTE | 2018-06-08 09:12 | P.PNCA ---
Subjective Interval history: Patient denies any CP, pressure, palpitations, dizziness, edema or SOB. Medications and Allergies Allergies Allergy/AdvReac Type Severity Reaction Status Date / Time No Known Allergies Allergy Verified 06/04/18 18:27 Active Medications: Active Medications Acetaminophen (Tylenol) 650 mg PO Q4H PRN PRN Reason: PAIN/ HEDACHE Last Admin: 06/05/18 23:48 Dose: 650 mg Digoxin (Lanoxin) 125 mcg PO DAILY [facility] Last Admin: 06/08/18 08:20 Dose: 125 mcg Furosemide (Lasix Inj) 20 mg IV.PUSH DAILY [facility] Last Admin: 06/08/18 08:20 Dose: 20 mg Metoprolol Tartrate (Lopressor) 100 mg PO BID [facility] Last Admin: 06/08/18 08:20 Dose: 100 mg Rivaroxaban (Xarelto) 20 mg PO DAILY@1800 [facility] Last Admin: 06/07/18 17:52 Dose: 20 mg Sodium Chloride (Ns Flush) 2 ml IV.FLUSH PRN PRN PRN Reason: FLUSH AFTER USING IV ACCESS Sodium Chloride (Ns Flush) 2 ml IV.FLUSH BID [facility] Last Admin: 06/07/18 21:06 Dose: 2 ml Physical Exam Vital signs: Vital Signs 06/07/18 12:00 06/07/18 12:57 06/07/18 16:00 Temperature 97.3 F L 98.2 F Pulse Rate 97 H 105 H Respiratory Rate 20 20 Blood Pressure 121/82 149/68 H Pulse Oximetry 97 99 96 06/07/18 16:58 06/07/18 20:00 06/08/18 00:00 Temperature 97.8 F 97.5 F L Pulse Rate 112 H 107 H 93 H Respiratory Rate 16 18 Blood Pressure 125/89 151/86 H Pulse Oximetry 97 97 06/08/18 04:00 Temperature 97.5 F L Pulse Rate 96 H Respiratory Rate 16 Blood Pressure 142/88 H Pulse Oximetry 92 L Intake & Output 06/07/18 06/08/18 06/08/18 18:59 06:59 18:59 Intake Total 1080 / 1080 960 / 960 Output Total 1225 / 1225 950 / 950 Balance -145 / -145 10 / 10 Weight 112 kg Intake: Oral 1080 / 1080 960 / 960 Output: Urine 1225 / 1225 950 / 950 Other: # Voids 3 2 Date of Last Bowel Movement 06/07/18 # Bowel Movements 2 - Constitutional no acute distress - Routine HEENT Exam Head: Present: normocephalic Eye: Present: PERRL ENT: Present: mucous membranes moist - Routine Neck Exam Present: full ROM - Routine Respiratory Exam Present: CTA bilaterally - Routine Cardiovascular Exam Present: S1, S2, murmur, tachycardia, irregular rhythm - Routine Abdominal Exam Present: normoactive bowel sounds - Routine Extremities Exam Present: full ROM, pulses intact, normal capillary refill. Absent: cyanosis, clubbing, edema - Routine Skin Exam Present: intact - Routine Neurological Exam Present: oriented X3 - Detailed Neurological Exam: Coma Scale Eye Opening: Spontaneous Verbal Response: Oriented Motor Response: Obey commands [place] Coma Scale Total: 15 - Routine Psychiatric Exam Present: normal affect Results 06/08/18 08:00 06/05/18 06:01 CBC 06/08/18 Range/Units 08:00 WBC 3.9 L (4.0-11.0) th/mm3 RBC 4.48 L (4.50-5.90) mil/mm3 Hgb 14.6 (13.0-17.0) gm/dL Hct 42.6 (39.0-51.0) % Plt Count 98 L (150-450) th/mm3 Neut # (Auto) 2.4 (1.8-7.7) th/mm3 Lymph # (Auto) 1.1 (1.0-4.8) th/mm3 [place] # (Auto) 0.3 (0.0-0.9) th/mm3 Eos # (Auto) 0.1 (0.0-0.4) th/mm3 Baso # (Auto) 0.1 (0.0-0.2) th/mm3 Intake and Output 06/07/18 06/08/18 06/08/18 22:59 06:59 14:59 Intake Total 1080 / 1080 960 / 960 Output Total 1225 / 1225 950 / 950 Balance -145 / -145 Intake: Oral 1080 / 1080 960 / 960 Output: Urine 1225 / 1225 950 / 950 Other: # Voids 3 2 Date of Last Bowel Movement 06/07/18 # Bowel Movements 2 Weight 112 kg Assessment and Plan - Assessment (1) Atrial fibrillation, new onset Code(s): I48.91 - Unspecified atrial fibrillation Status: Acute (2) Hypertension Code(s): I10 - Essential (primary) hypertension Status: Chronic - Plan Patient remains in atrial fibrillation, we will continue Xarelto for anticoagulation. Patients continues to have episodes of rapid HR, we will increase his Digoxin to 250 mcg for better rate control. 2D echo shows preserved left ventricular function with EF of 60%, moderate mitral valve regurgitation and mild tricuspid valve regurgitation. We will proceed with cardioversion as an outpatient after 3 weeks of anticoagulation therapy. We will follow up with patient in our office 1-2 weeks post discharge. Patient cleared from a cardiac standpoint for discharge. The patient was seen and evaluated by Dr. Scott who participated in care, management and decision-making. - Attending Attestation Patient seen and examined. I reviewed and agree with the evaluation and plan as presented. Continue anticoagulation and rate control. DC home. Will schedule f/ u in our office in 2 weeks.
[2018-06-08 09:39] LABS: Platelet Morphology Normal (Normal)
[2018-06-08 09:43] VITALS: O2SAT 95
[2018-06-09] MEDS ORDERED: Digoxin 250 MCG Tablet PO SCH (09:00)
== END 2018-06-08 10:34 | disposition home or self-care (01) ==
LOC: NEPE 18:21 → NEDA 18:21 → N04 22:31
PROVIDERS: ADMIT Internal Medicine; ATTEND Internal Medicine

== ENCOUNTER 2018-07-09 12:45 | Observation (INO) ==
[2018-07-09] MEDS ORDERED: Pantoprazole Inj 40 MG Vial IV.PUSH ONE (13:13)
--- NOTE | 2018-07-09 13:45 | ED ---
HPI General Chief complaint: GI Bleed Stated complaint: blood in stool Time Seen by Provider: 07/09/18 13:08 Source: patient Limitations: no limitations History of Present Illness HPI narrative: Mr Keys is a 57 year old male who presents to the ED complaining of bleeding from the rectum. The patient was diagnosed with AFib in 05/2018 and underwent an electric cardioversion last week and a stress test yesterday. Today he noticed bright red blood in the stool after a bowel movement. The stool itself looked normal. He is currently taking Xarelto, Digoxin, Metoprolol and Lisinopril daily, and he had taken them this morning before the episode. He denies lightheadedness, syncope, headache, abdominal pain , SOB, nausea, vomiting, diarrhea, urinary urgency, frequency, or hematuria. He does describe a feeling in his chest like he needs to burp but denies chest pain. He states he feels normal and presented to the ED due to the blood in the toilet alone. His PMH is significant for AFib and hypertension. Patient states that his doctors Dr. perez he tried to contact them and he was brought here for evaluation. Per patient she did had a stress test yesterday and was told that if anything like this develop to come here. He denies any urinary or bowel movement issues since. He has only had one bowel movement with blood. Related Data Home Medications Medication Instructions Recorded Confirmed lisinopril 20 mg PO DAILY 06/30/18 07/09/18 aspirin 81 mg PO DAILY 07/09/18 07/09/18 digoxin 0.25 mg PO DAILY 07/09/18 07/09/18 metoprolol tartrate 100 mg PO BID 07/09/18 07/09/18 rivaroxaban [Xarelto] 20 mg PO DAILY 07/09/18 07/09/18 Allergies Allergy/AdvReac Type Severity Reaction Status Date / Time No Known Allergies Allergy Verified 06/04/18 18:27 Review of Systems ROS: all other systems reviewed are negative [facility] Medical History Medical History Atrial fibrillation status post cardioversion (Acute) Blood thinned due to long-term anticoagulant use (Acute) Hypertension (Acute) Surgical History Surgical History No history of previous surgery (Acute) Family History Family History Other Coronary artery disease Social History Social History Substance History: No History of Abuse Second Hand Smoke Exposure: No Smoking Status: Never smoker How Often Do You Have a Drink Containing Alcohol: Never Recent Travel in [facility] within the Last 8 Weeks: No Recent Out of Country Travel within the Last 8 Weeks: No Immunization History Tetanus Immunization: <5 Years Exam Narrative Exam Narrative: GENERAL: Well developed well nourished male in NAD SKIN: Warm and dry. HEAD: Atraumatic. Normocephalic. EYES: Pupils equal and round. No scleral icterus. No injection or drainage. ENT: No nasal bleeding or discharge. Mucous membranes pink and moist. NECK: Trachea midline. No JVD. CARDIOVASCULAR: Irregular rate and irregular rhythm. RESPIRATORY: No accessory muscle use. Clear to auscultation. Breath sounds equal bilaterally. GASTROINTESTINAL: Abdomen soft, non-tender, nondistended. Hepatic and splenic margins not palpable. Rectal Exam performed with smooth non-enlarged prostate and no visible blood. No hemorrhoids noted. MUSCULOSKELETAL: Extremities without clubbing, cyanosis, or edema. No obvious deformities. Full range of motion of the upper and lower extremities bilaterally. 2+ pulses bilaterally. NEUROLOGICAL: Awake and alert. No obvious cranial nerve deficits. Motor grossly within normal limits. Five out of 5 muscle strength in the arms and legs. Normal speech. PSYCHIATRIC: Appropriate mood and affect; insight and judgment normal. Procedures Hemaprompt Stool Procedural Steps Taken: specimen placed in appropriate test area, developer placed on specimen and control areas and controls appropriately positive and negative Hemaprompt Stool Result: positive Course Initial Documented Vital Signs Temperature 98.5 F 07/09/18 12:52 Pulse Rate 108 H 07/09/18 12:52 Respiratory Rate 20 07/09/18 12:52 Blood Pressure 203/103 H 07/09/18 12:52 Pulse Oximetry 98 07/09/18 12:52 Last Documented Vital Signs Temperature 98.5 F 07/09/18 12:52 Pulse Rate 121 H 07/09/18 13:26 Respiratory Rate 19 07/09/18 13:26 Blood Pressure 163/87 H 07/09/18 13:26 Pulse Oximetry 98 07/09/18 13:30 Medical Decision Making ISHAAN Attestation ISHAAN supervised visit: Yes Attestation: I, Dr. Colon, have reviewed the advance practice practitioner' s documentation and am in agreement, met with the patient face to face, made the diagnosis, and the medical decision making was done by me. *My assessment and Findings: 57-year-old -[place] male who presents emergency department with bright red blood per rectum, this morning, noticed in the toilet and on toilet paper. The patient denies any previous history of GI bleed, but is currently anticoagulated on Xarelto for history of atrial fibrillation. The patient recently had cardioversion, however, still in atrial fibrillation. The patient denies any lightheadedness, dizziness, or presyncopal symptoms. Rectal exam was performed by Jorge Garcia PA-C, was black, guaiac positive. Patient may have upper GI bleed versus lower GI bleed, is currently anticoagulated in atrial fibrillation with mild RVR. Therefore, CBC was sent to lab. MDM Narrative Medical decision making narrative: 57-year-old male who presents to the ED for evaluation of GI bleed. Patient was properly examined and was found to have signs and symptoms consistent with appears to be GI blood. Patient was properly evaluated and was found to have what appears to be also atrial fibrillation on exam. Patient is in a heart rate in the 120s 130s and goes back to 109. At this time labs and imaging were done. Hemoccult was done with glass processing worker present at all times and did show positive Hemoccult. No sign of actual red blood. Labs showed no sign of acute disease. Patient still in A. fib with RVR. Case discussed with Dr. Sanon who recommends that at this time patient be rate control. As patient will unfortunately will have to be stopped on Xarelto for now until source of GI bleed can be obtained he recommends against cardioversion or medication to stop atrial fib. Case discussed with Dr. Gee who agrees admission to his service. Patient and family agree with plan. Medical Screen Exam Complete: Yes Emergency Medical Condition: Yes Differential Diagnosis Differential Diagnosis: Atrial fibrillation versus GI bleed versus rectal bleeding versus atypical chest pain versus ACS versus coagulopathy Medical Records Medical records reviewed: Yes I reviewed the patient's medical records. Lab Data Lab results reviewed: Yes I reviewed the patient's lab results. Result diagrams: 07/09/18 13:30 07/09/18 13:30 Lab Results 07/09/18 07/09/18 07/09/18 Range/Units 13:30 13:30 13:30 WBC 2.8 L (4.0-11.0) th/mm3 RBC 4.49 L (4.50-5.90) mil/mm3 Hgb 14.8 (13.0-17.0) gm/dL Hct 43.5 (39.0-51.0) % MCV 96.8 (80.0-100.0) fL MCH 32.8 (27.0-34.0) pg MCHC 33.9 (32.0-36.0) % RDW 14.5 (11.6-17.2) % Plt Count 105 L (150-450) th/mm3 MPV 8.8 (7.0-11.0) fL Neut % (Auto) 46.1 (16.0-70.0) % Lymph % (Auto) 38.2 (9.0-44.0) % [place] % (Auto) 12.6 H (0.0-8.0) % Eos % (Auto) 1.9 (0.0-4.0) % Baso % (Auto) 1.2 (0.0-2.0) % Neut # (Auto) 1.3 L (1.8-7.7) th/mm3 Lymph # (Auto) 1.1 (1.0-4.8) th/mm3 [place] # (Auto) 0.3 (0.0-0.9) th/mm3 Eos # (Auto) 0.1 (0.0-0.4) th/mm3 Baso # (Auto) 0.0 (0.0-0.2) th/mm3 WBC Differential . Differential Comment Auto diff final PT 11.0 (9.8-11.6) sec INR 1.1 Ratio APTT 26.1 (23.4-31.7) sec Sodium (136-145) meq/L Potassium (3.5-5.1) meq/L Chloride (98-107) meq/L Carbon Dioxide (21.0-32.0) meq/L Anion Gap (5-15) meq/L BUN (7-18) mg/dL Creatinine (0.60-1.30) mg/dL Estimated GFR (>89) mL/min Random Glucose (74-106) mg/dL Calcium (8.5-10.1) mg/dL Magnesium 2.1 (1.5-2.5) mg/dL Total Bilirubin (0.2-1.0) mg/dL AST (15-37) U/L ALT (12-78) U/L Alkaline Phosphatase (45-117) U/L Troponin I (0.02-0.05) ng/mL Total Protein (6.4-8.2) g/dL Albumin (3.4-5.0) g/dL Digoxin (0.8-2.0) ng/mL Blood Type Blood Type Recheck Antibody Screen 07/09/18 07/09/18 07/09/18 Range/Units 13:30 13:30 13:30 WBC (4.0-11.0) th/mm3 RBC (4.50-5.90) mil/mm3 Hgb (13.0-17.0) gm/dL Hct (39.0-51.0) % MCV (80.0-100.0) fL MCH (27.0-34.0) pg MCHC (32.0-36.0) % RDW (11.6-17.2) % Plt Count (150-450) th/mm3 MPV (7.0-11.0) fL Neut % (Auto) (16.0-70.0) % Lymph % (Auto) (9.0-44.0) % [place] % (Auto) (0.0-8.0) % Eos % (Auto) (0.0-4.0) % Baso % (Auto) (0.0-2.0) % Neut # (Auto) (1.8-7.7) th/mm3 Lymph # (Auto) (1.0-4.8) th/mm3 [place] # (Auto) (0.0-0.9) th/mm3 Eos # (Auto) (0.0-0.4) th/mm3 Baso # (Auto) (0.0-0.2) th/mm3 WBC Differential Differential Comment PT (9.8-11.6) sec INR Ratio APTT (23.4-31.7) sec Sodium 142 (136-145) meq/L Potassium 3.6 (3.5-5.1) meq/L Chloride 107 (98-107) meq/L Carbon Dioxide 27.8 (21.0-32.0) meq/L Anion Gap 7 (5-15) meq/L BUN 15 (7-18) mg/dL Creatinine 1.15 (0.60-1.30) mg/dL Estimated GFR 79 L (>89) mL/min Random Glucose 85 (74-106) mg/dL Calcium 8.3 L (8.5-10.1) mg/dL Magnesium (1.5-2.5) mg/dL Total Bilirubin 0.7 (0.2-1.0) mg/dL AST 48 H (15-37) U/L ALT 104 H (12-78) U/L Alkaline Phosphatase 85 (45-117) U/L Troponin I (0.02-0.05) ng/mL Total Protein 6.9 (6.4-8.2) g/dL Albumin 3.3 L (3.4-5.0) g/dL Digoxin 0.6 L (0.8-2.0) ng/mL Blood Type AB Positive Blood Type Recheck Required Antibody Screen Negative 07/09/18 Range/Units 13:30 WBC (4.0-11.0) th/mm3 RBC (4.50-5.90) mil/mm3 Hgb (13.0-17.0) gm/dL Hct (39.0-51.0) % MCV (80.0-100.0) fL MCH (27.0-34.0) pg MCHC (32.0-36.0) % RDW (11.6-17.2) % Plt Count (150-450) th/mm3 MPV (7.0-11.0) fL Neut % (Auto) (16.0-70.0) % Lymph % (Auto) (9.0-44.0) % [place] % (Auto) (0.0-8.0) % Eos % (Auto) (0.0-4.0) % Baso % (Auto) (0.0-2.0) % Neut # (Auto) (1.8-7.7) th/mm3 Lymph # (Auto) (1.0-4.8) th/mm3 [place] # (Auto) (0.0-0.9) th/mm3 Eos # (Auto) (0.0-0.4) th/mm3 Baso # (Auto) (0.0-0.2) th/mm3 WBC Differential Differential Comment PT (9.8-11.6) sec INR Ratio APTT (23.4-31.7) sec Sodium (136-145) meq/L Potassium (3.5-5.1) meq/L Chloride (98-107) meq/L Carbon Dioxide (21.0-32.0) meq/L Anion Gap (5-15) meq/L BUN (7-18) mg/dL Creatinine (0.60-1.30) mg/dL Estimated GFR (>89) mL/min Random Glucose (74-106) mg/dL Calcium (8.5-10.1) mg/dL Magnesium (1.5-2.5) mg/dL Total Bilirubin (0.2-1.0) mg/dL AST (15-37) U/L ALT (12-78) U/L Alkaline Phosphatase (45-117) U/L Troponin I Less than 0.02 L (0.02-0.05) ng/mL Total Protein (6.4-8.2) g/dL Albumin (3.4-5.0) g/dL Digoxin (0.8-2.0) ng/mL Blood Type Blood Type Recheck Antibody Screen Imaging Data Attestation: I personally reviewed and interpreted this imaging study as follows : Radiologist's impression: Chest X-Ray 07/09/18 13:33 CONCLUSION: Negative examination. ECG Data Attestation: I personally reviewed and interpreted this ECG as follows: Interpretation: EKG shows atrial fibrillation but no sign of ischemia read by me and attending. Discharge Plan Discharge Disposition Patient Disposition: 30 Still Patient Discharge Details Diagnosis: Acute GI bleeding, Atrial fibrillation with RVR Physicians Team ED Provider: Fabián Colon ED Midlevel Provider: Jorge Garcia Primary Care Provider: Daryn Hood Attending Provider: J Luis Gee Other Providers: Vanessa Ross [place] Discharge Interventions Interventions: Vital Signs Last Done: 07/09/18 13:26 Status ED Status: Admitted Observation Patient
[2018-07-09 13:55] LABS: Baso % (Auto) 1.2 % (0.0-2.0); Eos # (Auto) 0.1 th/mm3 (0.0-0.4); Eos % (Auto) 1.9 % (0.0-4.0); Hematocrit 43.5 % (39.0-51.0); Hemoglobin 14.8 gm/dL (13.0-17.0); Lymph # (Auto) 1.1 th/mm3 (1.0-4.8); Lymph % (Auto) 38.2 % (9.0-44.0); Mean Corpuscular HGB Conc 33.9 % (32.0-36.0); Mean Corpuscular Hemoglobin 32.8 pg (27.0-34.0); Mean Corpuscular Volume 96.8 fL (80.0-100.0); Mean Platelet Volume 8.8 fL (7.0-11.0); Mono # (Auto) 0.3 th/mm3 (0.0-0.9); Mono % (Auto) 12.6 % (0.0-8.0); Neut # (Auto) 1.3 th/mm3 (1.8-7.7); Neut % (Auto) 46.1 % (16.0-70.0); Platelet Count 105 th/mm3 (150-450); Red Blood Count 4.49 mil/mm3 (4.50-5.90); Red Cell Distribution Width 14.5 % (11.6-17.2); White Blood Count 2.8 th/mm3 (4.0-11.0)
[2018-07-09 14:02] LABS: Activated Partial Thrombo Time 26.1 sec (23.4-31.7); INR 1.1 Ratio
[2018-07-09 14:13] LABS: Alanine Aminotransferase 104 U/L (12-78); Albumin 3.3 g/dL (3.4-5.0); Anion Gap 7 meq/L (5-15); Aspartate Aminotransferase 48 U/L (15-37); Blood Urea Nitrogen 15 mg/dL (7-18); Calcium 8.3 mg/dL (8.5-10.1); Carbon Dioxide 27.8 meq/L (21.0-32.0); Chloride 107 meq/L (98-107); Glomerular Filtration Rate 79 mL/min (>89); Glucose,Random 85 mg/dL (74-106); Potassium 3.6 meq/L (3.5-5.1); Sodium 142 meq/L (136-145)
[2018-07-09 14:16] LABS: Alkaline Phosphatase 85 U/L (45-117); Total Protein 6.9 g/dL (6.4-8.2)
--- NOTE | 2018-07-09 14:26 | XR ---
EXAM DATE: 07/09/2018 2:22 PM EST AGE/SEX: 57 years / Male INDICATIONS: A-fib. CLINICAL DATA: This is the patient's initial encounter. Patient reports that signs and symptoms have been present for 1 day and indicates a pain score of 4/10. MEDICAL/SURGICAL HISTORY: Cardiovascular disease. None. COMPARISON: [facility] – [place] 1V SINGLE AP, 06/05/2018. . FINDINGS: A single AP view of the chest demonstrates the lungs to be symmetrically aerated without evidence of mass, infiltrate or effusion. The cardiomediastinal contours are unremarkable. Osseous structures a re intact. CONCLUSION: Negative examination. Electronically signed by: Donal Potter MD 07/09/2018 2:24 PM EST
[2018-07-09] MEDS ORDERED: Bisacodyl 10 MG Supp RECTAL PRN (15:18)
[2018-07-09] MEDS ORDERED: Acetaminophen 325 MG Tablet PO PRN (15:18)
--- NOTE | 2018-07-09 15:52 | P.HPIM ---
History of Present Illness Primary Care Physician: Daryn Hood MD Chief Complaint: rectal bleed History of Present Illness: patient is a 57 y/o male with history of a-fib- s/p recent cardioversion,on Xarelto, hypertension who presented to ER with rectal bleed. he says that he noticed some fresh blood per rectum this morning. he denies any chest pain, sob , dizziness, abdominal pain, nausea or vomiting. he doesn't recall any previous rectal bleed. he never had any colonoscopy. Review of Systems All other systems reviewed negative except as stated in HPI PMFSH - History History Provided By: Patient - Medical History Medical History: Medical History (Last Reviewed 07/09/18 @ 15:49 by Gilson Gupta MD) Atrial fibrillation status post cardioversion Blood thinned due to long-term anticoagulant use Hypertension - Surgical History Surgical History: Surgical History (Last Reviewed 07/09/18 @ 15:49 by Gilson Gupta MD) No history of previous surgery - Family History Family History: Family History (Last Reviewed 07/09/18 @ 15:49 by Gilson Gupta MD) Other Coronary artery disease - Tobacco History Second Hand Smoke Exposure: No Smoking Status: Never smoker - Alcohol History How Often Do You Have a Drink Containing Alcohol: Never - Substance Use History Substance History: No History of Abuse - Travel History Recent Travel in the [place] Within the Last 8 Weeks: No Recent Travel Out of the Country Within the Last 8 Weeks: No - Immunization History Tetanus Immunization: <5 Years Medications and Allergies Active Medications: Active Medications Acetaminophen (Tylenol) 650 mg PO Q4H PRN PRN Reason: Temp > 100.4 Al Hydroxide/Mg Hydroxide (Milk Of Magnesia Liq) 30 ml PO Q12H PRN PRN Reason: Mild Constipation Bisacodyl (Dulcolax Supp) 10 mg RECTAL DAILY PRN PRN Reason: SEVERE CONSITIPATION Potassium Chloride/Dextrose/Sod Cl (D5w/1/2ns + Kcl 20 Meq Inj) 1,000 mls @ 75 mls/hr IV.CONT .[id number] SHEILA Lactulose (Lactulose Liq) 30 ml PO DAILY PRN PRN Reason: SEVERE CONSITIPATION Ondansetron HCl (Zofran Inj) 4 mg IV.PUSH Q6H PRN PRN Reason: NAUSEA OR VOMITING Sennosides (Senokot) 17.2 mg PO Q12H PRN PRN Reason: Moderate Constipation Allergies Allergy/AdvReac Type Severity Reaction Status Date / Time No Known Allergies Allergy Verified 06/04/18 18:27 Home Medications Medication Instructions Recorded Confirmed Type lisinopril 20 mg PO DAILY 06/30/18 07/09/18 History aspirin 81 mg PO DAILY 07/09/18 07/09/18 History digoxin 0.25 mg PO DAILY 07/09/18 07/09/18 History metoprolol tartrate 100 mg PO BID 07/09/18 07/09/18 History rivaroxaban [Xarelto] 20 mg PO DAILY 07/09/18 07/09/18 History Exam Vital signs: Vital Signs 07/09/18 12:52 07/09/18 13:26 07/09/18 13:30 Temperature 98.5 F Pulse Rate 108 H 121 H Respiratory Rate 20 19 Blood Pressure 203/103 H 163/87 H Pulse Oximetry 98 99 98 Intake & Output 07/08/18 07/09/18 07/09/18 18:59 06:59 18:59 Weight 107.501 kg - Constitutional no acute distress - Routine HEENT Exam Eye: Present: PERRL - Routine Neck Exam Present: supple - Routine Respiratory Exam Present: CTA bilaterally - Routine Cardiovascular Exam Present: irregularly irregular - Routine Abdominal Exam Present: soft - Routine Extremities Exam Comments: no pedal edema. - Routine Neurological Exam Present: alert, oriented X3 Results - Labs CBC & Chem 7: 07/09/18 13:30 07/09/18 13:30 Labs: Short CBC 07/09/18 Range/Units 13:30 WBC 2.8 L (4.0-11.0) th/mm3 Hgb 14.8 (13.0-17.0) gm/dL Hct 43.5 (39.0-51.0) % Plt Count 105 L (150-450) th/mm3 BMP 07/09/18 13:30 Sodium 142 Potassium 3.6 Chloride 107 Carbon Dioxide 27.8 BUN 15 Creatinine 1.15 Calcium 8.3 L Cardiac Enzymes 07/09/18 Range/Units 13:30 Troponin I Less than 0.02 L (0.02-0.05) ng/mL Liver Function 07/09/18 Range/Units 13:30 Total Bilirubin 0.7 (0.2-1.0) mg/dL AST 48 H (15-37) U/L ALT 104 H (12-78) U/L Alkaline Phosphatase 85 (45-117) U/L Albumin 3.3 L (3.4-5.0) g/dL - Imaging Impressions Chest X-Ray 07/09/18 13:33 CONCLUSION: Negative examination. Caprini VTE Risk Assessment Caprini VTE Risk Assessment: Moderate/High Risk (score >= 2) VTE Pharmacological Exception Reason: High risk for bleeding Caprini Risk Assessment Model: Point Value = 1 Point Value = 2 Point Value = 3 Point Value = 5 Age 41-60 Minor surgery BMI > 25 kg/m2 Swollen legs Varicose veins or History of unexplained or recurrent spontaneous Oral contraceptives or hormone replacement Sepsis (< 1 month) Serious lung disease, including pneumonia (< 1 month) Abnormal pulmonary function Acute myocardial infarction Congestive heart failure (< 1 month) History of inflammatory bowel disease Medical patient at bed rest Age 61-74 Arthroscopic surgery Major open surgery (> 45 min) Laparoscopic surgery (> 45 min) Malignancy Confined to bed (> 72 hours) Immobilizing plaster cast Central venous access Age >= 75 History of VTE Family history of VTE Factor V Leiden Prothrombin [id number] Lupus anticoagulant Anticardiolipin antibodies Elevated serum homocysteine Heparin-induced thrombocytopenia Other congenital or acquired thrombophilia Stroke (< 1 month) Elective arthroplasty Hip, pelvis, or leg fracture Acute spinal cord injury (< 1 month) Prophylaxis Regimen: Total Risk Factor Score Risk Level Prophylaxis Regimen 0-1 Low Early ambulation 2 Moderate Order ONE of the following: *Sequential Compression Device (SCD) *Heparin 5000 units SQ BID 3-4 Higher Order ONE of the following medications: *Heparin 5000 units SQ TID *Enoxaparin/Lovenox 40 mg SQ daily (WT < 150 kg, CrCl > 30 mL/min) *Enoxaparin/Lovenox 30 mg SQ daily (WT < 150 kg, CrCl > 10-29 mL/min) *Enoxaparin/Lovenox 30 mg SQ BID (WT < 150 kg, CrCl > 30 mL/min) AND/OR *Sequential Compression Device (SCD) 5 or more Highest Order ONE of the following medications: *Heparin 5000 units SQ TID (Preferred with Epidurals) *Enoxaparin/Lovenox 40 mg SQ daily (WT < 150 kg, CrCl > 30 mL/min) *Enoxaparin/Lovenox 30 mg SQ daily (WT < 150 kg, CrCl > 10-29 mL/min) *Enoxaparin/Lovenox 30 mg SQ BID (WT < 150 kg, CrCl > 30 mL/min) AND *Sequential Compression Device (SCD) Assessment and Plan - Plan A/P - rectal bleed- patient is on Xarelto NPO for now- continue with PPI- monitor H/H- will consult GI- continue supportive care with IV fluid. -a-fib with RVR- s/p recent cardioversion resume Metoprolol and Digoxin- hold aspirin and Xarelto due to GI bleed. cardiology consulted. -elevated LFT's GI consulted as noted above. -thrombocytopenia- chronic will monitor. -hypertension resume home meds and continue to monitor. -DVT prophylaxis with SCD's- no chemical prophylaxis due to rectal bleed. Discussed Condition With: the patient and GI. Discharge Planning: when GI w/u completed and cleared by GI and Cardiology.
--- NOTE | 2018-07-09 16:00 | P.CONGI ---
History of Present Illness Chief complaint: GI bleed, atrial fibrillation in RVR History of Present Illness: This is a 57 year old male who presents with nonpainful rectal bleeding. The patient was diagnosed with AFib in 05/2018 and underwent an electric cardioversion last week and a stress test yesterday. Patient was recently placed on Xarelto. Rectal bleeding described as red bright red mixed in with the stools, one episode. Patient denies nausea, vomiting, hematemesis, abd pain or change in bowels.Pt has been having indigestion but resolved with taking Nexium. Pt denies previous hx of GI bleed. Never had EGD/colonoscopy before. Denies NSAIDs or alcohol. Patient was noted to have Afib with RVR, cardiology consulted. Xarelto is on hold. hgb is 14.8, no more bleeding. <Loiue Chris - Last Filed: 07/09/18 16:07> Review of Systems All other systems reviewed negative except as stated in HPI <Louie Chris - Last Filed: 07/09/18 16:07> PMFSH - History History Provided By: Patient - Medical History Medical History: Medical History (Last Reviewed 07/09/18 @ 15:58 by VERONICA Paula) Atrial fibrillation status post cardioversion Blood thinned due to long-term anticoagulant use Hypertension - Surgical History Surgical History: Surgical History (Last Reviewed 07/09/18 @ 15:58 by VERONICA Paula) No history of previous surgery - Family History Family History: Family History (Last Reviewed 07/09/18 @ 15:58 by VERONICA Paula) Other Coronary artery disease - Tobacco History Second Hand Smoke Exposure: No Smoking Status: Never smoker - Alcohol History How Often Do You Have a Drink Containing Alcohol: Never - Substance Use History Substance History: No History of Abuse - Travel History Recent Travel in the [place] Within the Last 8 Weeks: No Recent Travel Out of the Country Within the Last 8 Weeks: No - Immunization History Tetanus Immunization: <5 Years <Louie Chris - Last Filed: 07/09/18 16:07> - Medical History Medical History: Medical History (Last Reviewed 07/09/18 @ 15:58 by VERONICA Paula) Atrial fibrillation status post cardioversion Blood thinned due to long-term anticoagulant use Hypertension - Surgical History Surgical History: Surgical History (Last Reviewed 07/09/18 @ 15:58 by VERONICA Paula) No history of previous surgery - Family History Family History: Family History (Last Reviewed 07/09/18 @ 15:58 by VERONICA Paula) Other Coronary artery disease <Vanessa Ross - Last Filed: 07/09/18 17:24> Medications and Allergies Active Medications: Active Medications Acetaminophen (Tylenol) 650 mg PO Q4H PRN PRN Reason: Temp > 100.4 Al Hydroxide/Mg Hydroxide (Milk Of Magnesia Liq) 30 ml PO Q12H PRN PRN Reason: Mild Constipation Bisacodyl (Dulcolax Supp) 10 mg RECTAL DAILY PRN PRN Reason: SEVERE CONSITIPATION Potassium Chloride/Dextrose/Sod Cl (D5w/1/2ns + Kcl 20 Meq Inj) 1,000 mls @ 75 mls/hr IV.CONT .[id number] SHEILA Lactulose (Lactulose Liq) 30 ml PO DAILY PRN PRN Reason: SEVERE CONSITIPATION Ondansetron HCl (Zofran Inj) 4 mg IV.PUSH Q6H PRN PRN Reason: NAUSEA OR VOMITING Sennosides (Senokot) 17.2 mg PO Q12H PRN PRN Reason: Moderate Constipation <Louie Chris - Last Filed: 07/09/18 16:07> Active Medications: Active Medications Acetaminophen (Tylenol) 650 mg PO Q4H PRN PRN Reason: Temp > 100.4 Al Hydroxide/Mg Hydroxide (Milk Of Magnesia Liq) 30 ml PO Q12H PRN PRN Reason: Mild Constipation Bisacodyl (Dulcolax Supp) 10 mg RECTAL DAILY PRN PRN Reason: SEVERE CONSITIPATION Digoxin (Lanoxin) 250 mcg PO DAILY [facility] Potassium Chloride/Dextrose/Sod Cl (D5w/1/2ns + Kcl 20 Meq Inj) 1,000 mls @ 75 mls/hr IV.CONT .[id number] [facility] Last Admin: 07/09/18 17:13 Dose: 75 mls/hr Lactulose (Lactulose Liq) 30 ml PO DAILY PRN PRN Reason: SEVERE CONSITIPATION Lisinopril (Prinivil) 20 mg PO DAILY [facility] Metoprolol Tartrate (Lopressor) 200 mg PO BID [facility] Ondansetron HCl (Zofran Inj) 4 mg IV.PUSH Q6H PRN PRN Reason: NAUSEA OR VOMITING Pantoprazole Sodium (Protonix Inj) 40 mg IV.PUSH Q24H SHEILA Sennosides (Senokot) 17.2 mg PO Q12H PRN PRN Reason: Moderate Constipation <Vanessa Ross - Last Filed: 07/09/18 17:24> Allergies Allergy/AdvReac Type Severity Reaction Status Date / Time No Known Allergies Allergy Verified 06/04/18 18:27 Home Medications Medication Instructions Recorded Confirmed Type lisinopril 20 mg PO DAILY 06/30/18 07/09/18 History aspirin 81 mg PO DAILY 07/09/18 07/09/18 History digoxin 0.25 mg PO DAILY 07/09/18 07/09/18 History metoprolol tartrate 100 mg PO BID 07/09/18 07/09/18 History rivaroxaban [Xarelto] 20 mg PO DAILY 07/09/18 07/09/18 History Exam Vital signs: Vital Signs 07/09/18 12:52 07/09/18 13:26 07/09/18 13:30 Temperature 98.5 F Pulse Rate 108 H 121 H Respiratory Rate 20 19 Blood Pressure 203/103 H 163/87 H Pulse Oximetry 98 99 98 Intake & Output 07/08/18 07/09/18 07/09/18 18:59 06:59 18:59 Weight 107.501 kg - Constitutional no acute distress - Routine HEENT Exam Head: Present: normocephalic - Routine Respiratory Exam Present: CTA bilaterally - Routine Cardiovascular Exam Present: irregularly irregular - Routine Extremities Exam Absent: clubbing, edema - Routine Skin Exam Present: intact, dry. Absent: jaundice - Routine Neurological Exam Present: alert, oriented X3 <Louie Chris - Last Filed: 07/09/18 16:07> Vital signs: Vital Signs 07/09/18 12:52 07/09/18 13:26 07/09/18 13:30 Temperature 98.5 F Pulse Rate 108 H 121 H Respiratory Rate 20 19 Blood Pressure 203/103 H 163/87 H Pulse Oximetry 98 99 98 Intake & Output 07/08/18 07/09/18 07/09/18 18:59 06:59 18:59 Weight 107.501 kg <Vanessa Ross Marc - Last Filed: 07/09/18 17:24> Results - Labs CBC & Chem 7: 07/09/18 13:30 07/09/18 13:30 Labs: Laboratory Results - last 24 hr 07/09/18 07/09/18 07/09/18 13:30 13:30 13:30 WBC 2.8 L RBC 4.49 L Hgb 14.8 Hct 43.5 MCV 96.8 MCH 32.8 MCHC 33.9 RDW 14.5 Plt Count 105 L MPV 8.8 Neut % (Auto) 46.1 Lymph % (Auto) 38.2 [place] % (Auto) 12.6 H Eos % (Auto) 1.9 Baso % (Auto) 1.2 Neut # (Auto) 1.3 L Lymph # (Auto) 1.1 [place] # (Auto) 0.3 Eos # (Auto) 0.1 Baso # (Auto) 0.0 WBC Differential . Differential Comment Auto diff final PT 11.0 INR 1.1 APTT 26.1 Sodium Potassium Chloride Carbon Dioxide Anion Gap BUN Creatinine Estimated GFR Random Glucose Calcium Magnesium 2.1 Total Bilirubin AST ALT Alkaline Phosphatase Troponin I Total Protein Albumin Digoxin Blood Type Blood Type Recheck Antibody Screen 07/09/18 07/09/18 07/09/18 13:30 13:30 13:30 WBC RBC Hgb Hct MCV MCH MCHC RDW Plt Count MPV Neut % (Auto) Lymph % (Auto) [place] % (Auto) Eos % (Auto) Baso % (Auto) Neut # (Auto) Lymph # (Auto) [place] # (Auto) Eos # (Auto) Baso # (Auto) WBC Differential Differential Comment PT INR APTT Sodium 142 Potassium 3.6 Chloride 107 Carbon Dioxide 27.8 Anion Gap 7 BUN 15 Creatinine 1.15 Estimated GFR 79 L Random Glucose 85 Calcium 8.3 L Magnesium Total Bilirubin 0.7 AST 48 H ALT 104 H Alkaline Phosphatase 85 Troponin I Total Protein 6.9 Albumin 3.3 L Digoxin 0.6 L Blood Type AB Positive Blood Type Recheck Required Antibody Screen Negative 07/09/18 13:30 WBC RBC Hgb Hct MCV MCH MCHC RDW Plt Count MPV Neut % (Auto) Lymph % (Auto) [place] % (Auto) Eos % (Auto) Baso % (Auto) Neut # (Auto) Lymph # (Auto) [place] # (Auto) Eos # (Auto) Baso # (Auto) WBC Differential Differential Comment PT INR APTT Sodium Potassium Chloride Carbon Dioxide Anion Gap BUN Creatinine Estimated GFR Random Glucose Calcium Magnesium Total Bilirubin AST ALT Alkaline Phosphatase Troponin I Less than 0.02 L Total Protein Albumin Digoxin Blood Type Blood Type Recheck Antibody Screen - Imaging Impressions Chest X-Ray 07/09/18 13:33 CONCLUSION: Negative examination. <Louie Chris - Last Filed: 07/09/18 16:07> - Labs CBC & Chem 7: 07/09/18 13:30 07/09/18 13:30 Labs: Laboratory Results - last 24 hr 07/09/18 07/09/18 07/09/18 13:30 13:30 13:30 WBC 2.8 L RBC 4.49 L Hgb 14.8 Hct 43.5 MCV 96.8 MCH 32.8 MCHC 33.9 RDW 14.5 Plt Count 105 L MPV 8.8 Neut % (Auto) 46.1 Lymph % (Auto) 38.2 [place] % (Auto) 12.6 H Eos % (Auto) 1.9 Baso % (Auto) 1.2 Neut # (Auto) 1.3 L Lymph # (Auto) 1.1 [place] # (Auto) 0.3 Eos # (Auto) 0.1 Baso # (Auto) 0.0 WBC Differential . Differential Comment Auto diff final PT 11.0 INR 1.1 APTT 26.1 Sodium Potassium Chloride Carbon Dioxide Anion Gap BUN Creatinine Estimated GFR Random Glucose Calcium Magnesium 2.1 Total Bilirubin AST ALT Alkaline Phosphatase Troponin I Total Protein Albumin Digoxin Blood Type Blood Type Recheck Antibody Screen 07/09/18 07/09/18 07/09/18 13:30 13:30 13:30 WBC RBC Hgb Hct MCV MCH MCHC RDW Plt Count MPV Neut % (Auto) Lymph % (Auto) [place] % (Auto) Eos % (Auto) Baso % (Auto) Neut # (Auto) Lymph # (Auto) [place] # (Auto) Eos # (Auto) Baso # (Auto) WBC Differential Differential Comment PT INR APTT Sodium 142 Potassium 3.6 Chloride 107 Carbon Dioxide 27.8 Anion Gap 7 BUN 15 Creatinine 1.15 Estimated GFR 79 L Random Glucose 85 Calcium 8.3 L Magnesium Total Bilirubin 0.7 AST 48 H ALT 104 H Alkaline Phosphatase 85 Troponin I Total Protein 6.9 Albumin 3.3 L Digoxin 0.6 L Blood Type AB Positive Blood Type Recheck Required Antibody Screen Negative 07/09/18 13:30 WBC RBC Hgb Hct MCV MCH MCHC RDW Plt Count MPV Neut % (Auto) Lymph % (Auto) [place] % (Auto) Eos % (Auto) Baso % (Auto) Neut # (Auto) Lymph # (Auto) [place] # (Auto) Eos # (Auto) Baso # (Auto) WBC Differential Differential Comment PT INR APTT Sodium Potassium Chloride Carbon Dioxide Anion Gap BUN Creatinine Estimated GFR Random Glucose Calcium Magnesium Total Bilirubin AST ALT Alkaline Phosphatase Troponin I Less than 0.02 L Total Protein Albumin Digoxin Blood Type Blood Type Recheck Antibody Screen - Imaging Impressions Liver Ultrasound 07/09/18 00:00 CONCLUSION: 1. Unremarkable examination. The gallbladder is within normal limits with no evidence of cholelithiasis. Chest X-Ray 07/09/18 13:33 CONCLUSION: Negative examination. <Vanessa Rsos - Last Filed: 07/09/18 17:24> Assessment and Plan - Plan - Nonpainful rectal bleeding- Patient was recently placed on Xarelto. Rectal bleeding described as red bright red mixed in with the stools, one episode. Patient denies nausea , vomiting, hematemesis, abd pain or change in bowels.Pt has been having indigestion but resolved with taking Nexium. Pt denies previous hx of GI bleed. Never had EGD/ colonoscopy before. Denies NSAIDs or alcohol. Patient was noted to have Afib with RVR, cardiology consulted. Xarelto is on hold. hgb is 14.8, no more bleeding - Elevated LFTs/low albumin, low plt- ? under line liver dz. pt denies alcohol, will monitor, order hepatitis panel and liver panel - Afib with RVR, cardiology consulted. Xarelto is on hold. - The patient was diagnosed with AFib in 05/2018 and underwent an electric cardioversion last week and a stress test yesterday. Plan: - Ok to start diet if ok with cardiology - Colonoscopy once cleared by cardiology - Monitor hh - Transfuse as needed - PPI - Notify Gi for active bleed - Hepatitis panel - liver work up - Monitor LFTs - US - Supportive care - Pt seen and examine by Dr. Ross and myself and this note is written on his behalf. <Louie Chris - Last Filed: 07/09/18 16:07> - Attending Attestation Seen and examined, plan as above. Plan discussed with the patient and his . Will follow up with you. Thank you for the consult. <Vanessa Ross - Last Filed: 07/09/18 17:24>
--- NOTE | 2018-07-09 16:22 | MB ---
cc: Joanne Scott MD DATE: 07/09/2018 HISTORY OF PRESENT ILLNESS: Mr. Keys is a 57-year-old black male with a history of atrial fibrillation with increased ventricular response, status post recent cardioversion, who presented to the emergency room with bright red blood per rectum this morning. He has not had any chest pain, shortness of breath, PND, orthopnea, or peripheral edema. He has not had GI bleeding in the past. He recently underwent a PET scan in our office, which showed no evidence of ischemia. His left ventricular function is preserved. He was found to be back in atrial fibrillation after his cardioversion. PAST MEDICAL HISTORY: Positive for recent onset atrial fibrillation, hypertension, mitral valve prolapse, moderate mitral regurgitation, mild tricuspid regurgitation, mild LVH. MEDICATIONS: Include: 1. Metoprolol 100 mg twice a day. 2. Digoxin 0.25 mg a day. 3. Aspirin. 4. Xarelto 20 mg a day. 5. Lisinopril 20 mg a day. ALLERGIES: NONE. SOCIAL HISTORY: The patient does not smoke. He does not drink alcohol. 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 FAMILY HISTORY: Positive for heart disease in his mother. REVIEW OF SYSTEMS: Otherwise negative. PHYSICAL EXAMINATION: VITAL SIGNS: Blood pressure 163/87, pulse 107 and irregular. NECK: Negative, 2+ carotid upstrokes, no bruits. LUNGS: Clear. HEART: Irregularly irregular with no murmur, gallop or rub. ABDOMEN: Soft. EXTREMITIES: No edema. Positive pulses. NEUROLOGIC: Grossly nonfocal. DIAGNOSTIC DATA: Telemetry was reviewed, and showed atrial fibrillation with increased ventricular response. Laboratory: Hemoglobin 14.8, potassium 3.6, creatinine 1.2. IMPRESSION: 1. Persistent atrial fibrillation with increased ventricular response. 2. Hypertension. 3. Mitral valve prolapse with moderate mitral regurgitation. PLAN: Mr. Keys will undergo GI evaluation including endoscopy. He can be cleared for endoscopy from a cardiac standpoint. His recent cardiac PET scan showed no evidence of ischemia. His left ventricular function is preserved. I recommend to continue and titrate rate control of his atrial fibrillation. He will stay off blood thinners at this time; I would like to restart his Xarelto once he is cleared by GI. Recommend to continue and titrate therapy for hypertension. He will be monitored on telemetry. I will see him back for followup in our office after discharge MD Philip Hitchcock , 04:05 PM , 04:13 PM [facility]DCa
--- NOTE | 2018-07-09 16:38 | US ---
EXAM DATE: 07/09/2018 4:34 PM EST AGE/SEX: 57 years / Male INDICATIONS: Right upper quadrant pain. CLINICAL DATA: This is the patient's initial encounter. Patient reports that signs and symptoms have been present for 1 day and indicates a pain score of 3/10. MEDICAL/SURGICAL HISTORY: Hypertension. Atrial fibrillation. None. COMPARISON: No prior exams available for comparison. MEASUREMENTS: Liver:__ 14.8 cm. Common Bile Duct:__ 4mm. Right Kidney:__ 10.2 x 5.6 x 5.4 cm. FINDINGS: Liver: Normal echotexture without focal lesion or ductal dilatation. Portal Vein: Hepatopedal flow seen in portal vein. Common Duct: No intraluminal mass or stone visualized. Gallbladder: Demonstrates no wall thickening or pericholecystic fluid. No stones visualized. Pancreas: The visualized portions are within normal limits Right Kidney: Normal echotexture and cortical thickness. No mass or hydronephrosis. Other: None. CONCLUSION: 1. Unremarkable examination. The gallbladder is within normal limits with no evidence of cholelithia sis. Electronically signed by: Maverick Barraza MD 07/09/2018 4:36 PM EST
[2018-07-09] MEDS: KCL 20 mEq/D5W/NaCl 0.45% Inj 1,000 ML IV.CONT SCH (17:13)
[2018-07-09] MEDS ORDERED: Metoprolol Tartrate 100 MG Tablet PO SCH (21:00)
[2018-07-09] MEDS: Metoprolol Tartrate 100 MG Tablet PO SCH (21:03)
[2018-07-09 21:29] LABS: Hematocrit 43.4 % (39.0-51.0); Hemoglobin 14.4 gm/dL (13.0-17.0)
[2018-07-09 21:51] LABS: % Iron Saturation 28.2 % (20-50)
[2018-07-09 22:52] LABS: Hepatitis A IgM Antibody Nonreactive (Nonreactive); Hepatitits B Surface Antigen Nonreactive (Nonreactive)
[2018-07-10] MEDS: KCL 20 mEq/D5W/NaCl 0.45% Inj 1,000 ML IV.CONT SCH (05:40)
[2018-07-10 07:26] LABS: Baso % (Auto) 1.1 % (0.0-2.0); Eos # (Auto) 0.1 th/mm3 (0.0-0.4); Eos % (Auto) 3.1 % (0.0-4.0); Hematocrit 41.9 % (39.0-51.0); Hemoglobin 14.2 gm/dL (13.0-17.0); Lymph % (Auto) 35.4 % (9.0-44.0); Mean Corpuscular HGB Conc 33.8 % (32.0-36.0); Mean Corpuscular Volume 94.5 fL (80.0-100.0); Mean Platelet Volume 8.5 fL (7.0-11.0); Mono # (Auto) 0.3 th/mm3 (0.0-0.9); Neut # (Auto) 1.4 th/mm3 (1.8-7.7); Neut % (Auto) 49.4 % (16.0-70.0); Platelet Count 103 th/mm3 (150-450); Red Blood Count 4.43 mil/mm3 (4.50-5.90); Red Cell Distribution Width 14.3 % (11.6-17.2); White Blood Count 2.8 th/mm3 (4.0-11.0)
[2018-07-10 07:57] LABS: Albumin 2.9 g/dL (3.4-5.0)
[2018-07-10 07:59] LABS: Total Protein 6.2 g/dL (6.4-8.2)
[2018-07-10] MEDS ORDERED: Lisinopril 20 MG Tablet PO SCH (09:00)
[2018-07-10] MEDS ORDERED: Pantoprazole Inj 40 MG Vial IV.PUSH SCH (09:00)
[2018-07-10] MEDS ORDERED: Digoxin 250 MCG Tablet PO SCH (09:00)
[2018-07-10] MEDS: Metoprolol Tartrate 100 MG Tablet PO SCH (09:26)
--- NOTE | 2018-07-10 10:06 | P.PNGI ---
Subjective Interval history: Patient laying supine in bed Denies any further noted rectal bleeding Denies abdominal pain nausea or vomiting <Negro,Alisha - Last Filed: 07/10/18 09:58> Physical Exam Vital signs: Vital Signs 07/09/18 12:52 07/09/18 13:26 07/09/18 13:30 Temperature 98.5 F Pulse Rate 108 H 121 H Respiratory Rate 20 19 Blood Pressure 203/103 H 163/87 H Pulse Oximetry 98 99 98 07/09/18 17:49 07/09/18 19:41 07/09/18 20:00 Temperature 98.0 F 98.3 F Pulse Rate 94 H 90 Respiratory Rate 16 18 Blood Pressure 163/94 H 136/103 H Pulse Oximetry 96 96 96 07/09/18 23:53 07/10/18 03:49 07/10/18 07:24 Temperature 98.5 F 97.4 F L 98.0 F Pulse Rate 76 82 75 Respiratory Rate 18 18 18 Blood Pressure 137/87 129/86 126/80 Pulse Oximetry 96 95 99 Intake & Output 07/09/18 07/10/18 07/10/18 18:59 06:59 18:59 Intake Total 1000 / 1000 0 / 0 Output Total 560 / 560 Balance 440 / 440 0 / 0 Weight 102.058 kg 102.058 kg Intake: IV 1000 / 1000 0 / 0 D5W/1/2NS + KCL 20 mEq Inj 1, 1000 / 1000 0 / 0 000 ML @ 75 mls/hr IV.CONT . [id number] [facility] Rx#:[id number] Oral 0 / 0 Output: Urine 560 / 560 Other: # Voids 0 2 Weight On Admission 102.058 kg - Constitutional no acute distress - Routine HEENT Exam Head: Present: normocephalic - Routine Respiratory Exam Present: CTA bilaterally. Absent: accessory muscle use - Routine Abdominal Exam Present: soft, normoactive bowel sounds. Absent: tenderness, distended, guarding, firm - Routine Skin Exam Present: dry, warm - Routine Neurological Exam Present: alert - Routine Psychiatric Exam Present: normal affect, cooperative <NegroAlisha - Last Filed: 07/10/18 09:58> Vital signs: Intake & Output 07/10/18 07/11/18 07/11/18 18:59 06:59 18:59 Intake Total 150 / 150 Balance 150 / 150 Intake: IV 150 / 150 D5W/1/2NS + KCL 20 mEq Inj 1, 150 / 150 000 ML @ 75 mls/hr IV.CONT . [id number] [facility] Rx#:[id number] Other: Date of Last Bowel Movement 07/10/18 # Bowel Movements 1 <Vanessa Ross A - Last Filed: 07/11/18 09:36> Results - Labs CBC & Chem 7: 07/10/18 07:02 07/09/18 13:30 Laboratory Results - last 24 hr 07/09/18 07/09/18 07/09/18 13:30 13:30 13:30 WBC 2.8 L RBC 4.49 L Hgb 14.8 Hct 43.5 MCV 96.8 MCH 32.8 MCHC 33.9 RDW 14.5 Plt Count 105 L MPV 8.8 Neut % (Auto) 46.1 Lymph % (Auto) 38.2 [place] % (Auto) 12.6 H Eos % (Auto) 1.9 Baso % (Auto) 1.2 Neut # (Auto) 1.3 L Lymph # (Auto) 1.1 [place] # (Auto) 0.3 Eos # (Auto) 0.1 Baso # (Auto) 0.0 WBC Differential . Differential Comment Auto diff final PT 11.0 INR 1.1 APTT 26.1 Sodium Potassium Chloride Carbon Dioxide Anion Gap BUN Creatinine Estimated GFR Random Glucose Calcium Magnesium 2.1 Iron TIBC % Saturation Ferritin Total Bilirubin Direct Bilirubin Indirect Bilirubin AST ALT Alkaline Phosphatase Troponin I Total Protein Albumin Tumor Marker AFP Digoxin Hepatitis A IgM Ab Hep Bs Antigen Hep B Core IgM Ab Hep C IgG Ab Blood Type Blood Type Recheck Antibody Screen 07/09/18 07/09/18 07/09/18 13:30 13:30 13:30 WBC RBC Hgb Hct MCV MCH MCHC RDW Plt Count MPV Neut % (Auto) Lymph % (Auto) [place] % (Auto) Eos % (Auto) Baso % (Auto) Neut # (Auto) Lymph # (Auto) [place] # (Auto) Eos # (Auto) Baso # (Auto) WBC Differential Differential Comment PT INR APTT Sodium 142 Potassium 3.6 Chloride 107 Carbon Dioxide 27.8 Anion Gap 7 BUN 15 Creatinine 1.15 Estimated GFR 79 L Random Glucose 85 Calcium 8.3 L Magnesium Iron TIBC % Saturation Ferritin Total Bilirubin 0.7 Direct Bilirubin Indirect Bilirubin AST 48 H ALT 104 H Alkaline Phosphatase 85 Troponin I Total Protein 6.9 Albumin 3.3 L Tumor Marker AFP Digoxin 0.6 L Hepatitis A IgM Ab Hep Bs Antigen Hep B Core IgM Ab Hep C IgG Ab Blood Type AB Positive Blood Type Recheck Required Antibody Screen Negative 07/09/18 07/09/18 07/09/18 13:30 20:43 20:45 WBC RBC Hgb 14.4 Hct 43.4 MCV MCH MCHC RDW Plt Count MPV Neut % (Auto) Lymph % (Auto) [place] % (Auto) Eos % (Auto) Baso % (Auto) Neut # (Auto) Lymph # (Auto) [place] # (Auto) Eos # (Auto) Baso # (Auto) WBC Differential Differential Comment PT INR APTT Sodium Potassium Chloride Carbon Dioxide Anion Gap BUN Creatinine Estimated GFR Random Glucose Calcium Magnesium Iron TIBC % Saturation Ferritin Total Bilirubin Direct Bilirubin Indirect Bilirubin AST ALT Alkaline Phosphatase Troponin I Less than 0.02 L Total Protein Albumin Tumor Marker AFP Digoxin Hepatitis A IgM Ab Nonreactive Hep Bs Antigen Nonreactive Hep B Core IgM Ab Nonreactive Hep C IgG Ab Nonreactive Blood Type Blood Type Recheck Antibody Screen 07/09/18 07/10/18 07/10/18 20:45 07:02 07:02 WBC 2.8 L RBC 4.43 L Hgb 14.2 Hct 41.9 MCV 94.5 MCH 32.0 MCHC 33.8 RDW 14.3 Plt Count 103 L MPV 8.5 Neut % (Auto) 49.4 Lymph % (Auto) 35.4 [place] % (Auto) 11.0 H Eos % (Auto) 3.1 Baso % (Auto) 1.1 Neut # (Auto) 1.4 L Lymph # (Auto) 1.0 [place] # (Auto) 0.3 Eos # (Auto) 0.1 Baso # (Auto) 0.0 WBC Differential . Differential Comment Auto diff final PT INR APTT Sodium Potassium Chloride Carbon Dioxide Anion Gap BUN Creatinine Estimated GFR Random Glucose Calcium Magnesium Iron 117 TIBC 414 % Saturation 28.2 Ferritin 45 Total Bilirubin 1.2 H Direct Bilirubin 0.3 H Indirect Bilirubin 0.9 H AST 46 H ALT 90 H Alkaline Phosphatase 73 Troponin I Total Protein 6.2 L D Albumin 2.9 L Tumor Marker AFP 8.0 Digoxin Hepatitis A IgM Ab Hep Bs Antigen Hep B Core IgM Ab Hep C IgG Ab Blood Type Blood Type Recheck Antibody Screen - Imaging Impressions Liver Ultrasound 07/09/18 00:00 CONCLUSION: 1. Unremarkable examination. The gallbladder is within normal limits with no evidence of cholelithiasis. Chest X-Ray 07/09/18 13:33 CONCLUSION: Negative examination. <Diana Negroy - Last Filed: 07/10/18 09:58> - Labs CBC & Chem 7: 07/10/18 07:02 07/09/18 13:30 <Vanessa Ross A - Last Filed: 07/11/18 09:36> Assessment and Plan - Plan - Nonpainful rectal bleeding- Patient was recently placed on Xarelto. Rectal bleeding described as red bright red mixed in with the stools, one episode. Patient denies nausea , vomiting, hematemesis, abd pain or change in bowels.Pt has been having indigestion but resolved with taking Nexium. Pt denies previous hx of GI bleed. Never had EGD/ colonoscopy before. Denies NSAIDs or alcohol. Patient was noted to have Afib with RVR, cardiology consulted. Xarelto is on hold. hgb is 14.8, no more bleeding - Elevated LFTs/low albumin, low plt- ? under line liver dz. pt denies alcohol, will monitor, order hepatitis panel and liver panel - Afib with RVR, cardiology consulted. Xarelto is on hold. - The patient was diagnosed with AFib in 05/2018 and underwent an electric cardioversion last week and a stress test yesterday. 07/10/2018 Patient denies abdominal pain or any further noted rectal bleeding. Patient denies any past history of EGD or colonoscopy. 07/10/2018 hemoglobin 14.2 hematocrit 41.9 platelet count 103 INR1.1 Total bilirubin 1.2 AST 46 ALT 90 alk phos 73 -- all trending down Cardiology consult-clearance obtained for colonoscopy. As per attending, patient will be discharged home and will follow-up with GI as outpatient for endoscopy. Liver immunology pending-patient agrees to follow-up with GI post discharge 07/09/2018 Liver ultrasound--> Unremarkable examination. The gallbladder is within normal limits with no evidence of cholelithiasis. Plan Diet as tolerated Patient will monitor for bleeding Patient agrees to follow-up with GI post discharge Continue PPI This patient has been seen by myself and Dr. Ross and this note is written on his behalf - Attending Attestation Dr. Ross <Alisha Negro - Last Filed: 07/10/18 09:58> - Attending Attestation Seen and examined, plan as above. Thank you for the consult. <Vanessa Ross - Last Filed: 07/11/18 09:36>
--- NOTE | 2018-07-10 12:16 | P.DS ---
Date of admission: 07/09/18 15:18 Primary care physician: Daryn Hood MD Attending physician on discharge: Evin Flores Anticipated date of discharge: 07/10/18 Brief History from admission: patient is a 57 y/o male with history of a-fib- s/p recent cardioversion,on Xarelto, hypertension who presented to ER with rectal bleed. he says that he noticed some fresh blood per rectum this morning. he denies any chest pain, sob , dizziness, abdominal pain, nausea or vomiting. he doesn't recall any previous rectal bleed. he never had any colonoscopy. Patient update on day of discharge: Patient is seen sitting up in bed. He reports no further episodes of bleeding. No abdominal pain. No nausea or vomiting. He would like to eat lunch. Discussed the possibility of outpatient workup as he is eager to get home. DS: Summary Hospital Course: patient is a 57 y/o male with history of a-fib- s/p recent cardioversion,on Xarelto, hypertension who presented to ER with rectal bleed. he says that he noticed some fresh blood per rectum this morning. No repeat bleeding. He was evaluated by both GI and cardiology. Cardiology recommending that Xarelto be held for GI procedures and then restarted. GI planning colonoscopy however they agreed to outpatient follow-up as patient had no repeat episode of bloody stool and hemoglobin stable at 14+. - Time Spent with Patient Total time spent providing and/or coordinating discharge services: Less than 30 minutes - Quality: VTE Deep Vein Thrombosis/Pulmonary Embolism Present on Admission: No Exam Vital signs: Vital Signs 07/09/18 12:52 07/09/18 13:26 07/09/18 13:30 Temperature 98.5 F Pulse Rate 108 H 121 H Respiratory Rate 20 19 Blood Pressure 203/103 H 163/87 H Pulse Oximetry 98 99 98 07/09/18 17:49 07/09/18 19:41 07/09/18 20:00 Temperature 98.0 F 98.3 F Pulse Rate 94 H 90 Respiratory Rate 16 18 Blood Pressure 163/94 H 136/103 H Pulse Oximetry 96 96 96 07/09/18 23:53 07/10/18 03:49 07/10/18 07:24 Temperature 98.5 F 97.4 F L 98.0 F Pulse Rate 76 82 75 Respiratory Rate 18 18 18 Blood Pressure 137/87 129/86 126/80 Pulse Oximetry 96 95 99 Intake & Output 07/09/18 07/10/18 07/10/18 18:59 06:59 18:59 Intake Total 1000 / 1000 150 / 150 Output Total 560 / 560 Balance 440 / 440 150 / 150 Weight 102.058 kg 102.058 kg Intake: IV 1000 / 1000 150 / 150 D5W/1/2NS + KCL 20 mEq Inj 1, 1000 / 1000 150 / 150 000 ML @ 75 mls/hr IV.CONT . [id number] [facility] Rx#:[id number] Oral 0 / 0 Output: Urine 560 / 560 Other: # Voids 0 2 Weight On Admission 102.058 kg Narrative: GENERAL: Well-nourished, well-developed adult male in no obvious distress. SKIN: Warm and dry. HEAD: Atraumatic. Normocephalic. CARDIOVASCULAR: Regular rate and rhythm. RESPIRATORY: No accessory muscle use. Clear to auscultation. Breath sounds equal bilaterally. GASTROINTESTINAL: Abdomen soft, non-tender, non-distended. Positive bowel sounds. MUSCULOSKELETAL: Extremities without clubbing, cyanosis, or edema. No obvious deformities. NEUROLOGICAL: Awake and alert. No obvious cranial nerve deficits. Motor grossly within normal limits. Normal speech. PSYCHIATRIC: Appropriate mood and affect; insight and judgment good. Results Procedures completed during hospitalization: none Labs on day of discharge: Labs from last 24 hours 07/10/18 07/10/18 07/09/18 07:02 07:02 20:45 WBC 2.8 L RBC 4.43 L Hgb 14.2 Hct 41.9 MCV 94.5 MCH 32.0 MCHC 33.8 RDW 14.3 Plt Count 103 L MPV 8.5 Neut % (Auto) 49.4 Lymph % (Auto) 35.4 Kaufman % (Auto) 11.0 H Eos % (Auto) 3.1 Baso % (Auto) 1.1 Neut # (Auto) 1.4 L Lymph # (Auto) 1.0 Kaufman # (Auto) 0.3 Eos # (Auto) 0.1 Baso # (Auto) 0.0 WBC Differential . Differential Comment Auto diff final PT INR APTT Sodium Potassium Chloride Carbon Dioxide Anion Gap BUN Creatinine Estimated GFR Random Glucose Calcium Magnesium Iron TIBC % Saturation Ferritin Total Bilirubin 1.2 H Direct Bilirubin 0.3 H Indirect Bilirubin 0.9 H AST 46 H ALT 90 H Alkaline Phosphatase 73 Troponin I Total Protein 6.2 L D Albumin 2.9 L Vwcsd-9-Ypcphlyjugx Pending Ceruloplasmin Tumor Marker AFP Digoxin Rheumatoid Factor TORIN Screen TORIN Pattern SS-A Antibody SS-B Antibody Sm (Story) Antibody SM/[employer] Antibody Scl-70 Antibody Anti-ds DNA (Crithidia) Mitochondria M2 IgG Ab Anti-Smooth Muscle Ab Tiss Transglutamin IgG Tiss Transglutamin IgA Hepatitis A IgM Ab Hep Bs Antigen Hep B Core IgM Ab Hep C IgG Ab Blood Type Blood Type Recheck Antibody Screen 07/09/18 07/09/18 07/09/18 20:45 20:45 20:45 WBC RBC Hgb 14.4 Hct 43.4 MCV MCH MCHC RDW Plt Count MPV Neut % (Auto) Lymph % (Auto) Kaufman % (Auto) Eos % (Auto) Baso % (Auto) Neut # (Auto) Lymph # (Auto) Kaufman # (Auto) Eos # (Auto) Baso # (Auto) WBC Differential Differential Comment PT INR APTT Sodium Potassium Chloride Carbon Dioxide Anion Gap BUN Creatinine Estimated GFR Random Glucose Calcium Magnesium Iron 117 TIBC 414 % Saturation 28.2 Ferritin 45 Total Bilirubin Direct Bilirubin Indirect Bilirubin AST ALT Alkaline Phosphatase Troponin I Total Protein Albumin Smsxd-6-Nswxmbwqrby Ceruloplasmin Pending Tumor Marker AFP 8.0 Digoxin Rheumatoid Factor Pending TORIN Screen Pending TORIN Pattern Pending SS-A Antibody Pending SS-B Antibody Pending Sm (Story) Antibody Pending SM/[employer] Antibody Pending Scl-70 Antibody Pending Anti-ds DNA (Crithidia) Pending Mitochondria M2 IgG Ab Pending Anti-Smooth Muscle Ab Pending Tiss Transglutamin IgG Pending Tiss Transglutamin IgA Pending Hepatitis A IgM Ab Hep Bs Antigen Hep B Core IgM Ab Hep C IgG Ab Blood Type Blood Type Recheck Antibody Screen 07/09/18 07/09/18 07/09/18 20:43 13:30 13:30 WBC RBC Hgb Hct MCV MCH MCHC RDW Plt Count MPV Neut % (Auto) Lymph % (Auto) Kaufman % (Auto) Eos % (Auto) Baso % (Auto) Neut # (Auto) Lymph # (Auto) Kaufman # (Auto) Eos # (Auto) Baso # (Auto) WBC Differential Differential Comment PT INR APTT Sodium Potassium Chloride Carbon Dioxide Anion Gap BUN Creatinine Estimated GFR Random Glucose Calcium Magnesium Iron TIBC % Saturation Ferritin Total Bilirubin Direct Bilirubin Indirect Bilirubin AST ALT Alkaline Phosphatase Troponin I Less than 0.02 L Total Protein Albumin Crrfa-7-Eosohmxmsxg Ceruloplasmin Tumor Marker AFP Digoxin 0.6 L Rheumatoid Factor TORIN Screen TORIN Pattern SS-A Antibody SS-B Antibody Sm (Story) Antibody SM/[employer] Antibody Scl-70 Antibody Anti-ds DNA (Crithidia) Mitochondria M2 IgG Ab Anti-Smooth Muscle Ab Tiss Transglutamin IgG Tiss Transglutamin IgA Hepatitis A IgM Ab Nonreactive Hep Bs Antigen Nonreactive Hep B Core IgM Ab Nonreactive Hep C IgG Ab Nonreactive Blood Type Blood Type Recheck Antibody Screen 07/09/18 07/09/18 07/09/18 13:30 13:30 13:30 WBC RBC Hgb Hct MCV MCH MCHC RDW Plt Count MPV Neut % (Auto) Lymph % (Auto) Kaufman % (Auto) Eos % (Auto) Baso % (Auto) Neut # (Auto) Lymph # (Auto) Kaufman # (Auto) Eos # (Auto) Baso # (Auto) WBC Differential Differential Comment PT 11.0 INR 1.1 APTT 26.1 Sodium 142 Potassium 3.6 Chloride 107 Carbon Dioxide 27.8 Anion Gap 7 BUN 15 Creatinine 1.15 Estimated GFR 79 L Random Glucose 85 Calcium 8.3 L Magnesium Iron TIBC % Saturation Ferritin Total Bilirubin 0.7 Direct Bilirubin Indirect Bilirubin AST 48 H ALT 104 H Alkaline Phosphatase 85 Troponin I Total Protein 6.9 Albumin 3.3 L Pxzox-3-Izdjtctnolc Ceruloplasmin Tumor Marker AFP Digoxin Rheumatoid Factor TORIN Screen TORIN Pattern SS-A Antibody SS-B Antibody Sm (Story) Antibody SM[employer] Antibody Scl-70 Antibody Anti-ds DNA (Crithidia) Mitochondria M2 IgG Ab Anti-Smooth Muscle Ab Tiss Transglutamin IgG Tiss Transglutamin IgA Hepatitis A IgM Ab Hep Bs Antigen Hep B Core IgM Ab Hep C IgG Ab Blood Type AB Positive Blood Type Recheck Required Antibody Screen Negative 07/09/18 07/09/18 13:30 13:30 WBC 2.8 L RBC 4.49 L Hgb 14.8 Hct 43.5 MCV 96.8 MCH 32.8 MCHC 33.9 RDW 14.5 Plt Count 105 L MPV 8.8 Neut % (Auto) 46.1 Lymph % (Auto) 38.2 Kaufman % (Auto) 12.6 H Eos % (Auto) 1.9 Baso % (Auto) 1.2 Neut # (Auto) 1.3 L Lymph # (Auto) 1.1 Kaufman # (Auto) 0.3 Eos # (Auto) 0.1 Baso # (Auto) 0.0 WBC Differential . Differential Comment Auto diff final PT INR APTT Sodium Potassium Chloride Carbon Dioxide Anion Gap BUN Creatinine Estimated GFR Random Glucose Calcium Magnesium 2.1 Iron TIBC % Saturation Ferritin Total Bilirubin Direct Bilirubin Indirect Bilirubin AST ALT Alkaline Phosphatase Troponin I Total Protein Albumin Zilly-7-Rqerzwnvqev Ceruloplasmin Tumor Marker AFP Digoxin Rheumatoid Factor TORIN Screen TORIN Pattern SS-A Antibody SS-B Antibody Sm (Sotry) Antibody [employer] Antibody Scl-70 Antibody Anti-ds DNA (Crithidia) Mitochondria M2 IgG Ab Anti-Smooth Muscle Ab Tiss Transglutamin IgG Tiss Transglutamin IgA Hepatitis A IgM Ab Hep Bs Antigen Hep B Core IgM Ab Hep C IgG Ab Blood Type Blood Type Recheck Antibody Screen - Impressions ITS Impressions Liver Ultrasound 07/09/18 00:00 CONCLUSION: 1. Unremarkable examination. The gallbladder is within normal limits with no evidence of cholelithiasis. Chest X-Ray 07/09/18 13:33 CONCLUSION: Negative examination. Discharge Plan - Discharge Disposition Patient Disposition: 01 Discharge Home - Discharge Condition Condition: Stable - Discharge Order Discharge Orders: Discharge Order (Routine); Ordered 07/10/18 Ordered By: Desi Toth - Physicians Team Primary Care Provider: Daryn Hood Attending Provider: Evin Flores Other Providers: Vanessa Ross MD ; Joanne Scott MD
--- NOTE | 2018-07-11 07:29 | ECG ---
Date Performed: 07/09/2018 Time Performed: 13:21:06 PTAGE: 57 years EKG: ATRIAL FIBRILLATION WITH RAPID VENTRICULAR RESPONSE ABNORMAL RHYTHM ECG PREVIOUS TRACING : 06/30/2018 14.55 Compared to previous tracing, Atrial fibrillation has repla rob Sinus rhythm DOCTOR: Brain Story Interpretating Date/Time 07/11/2018 07:29:00
[2018-07-12 17:52] LABS: Ceruloplasmin 24 mg/dL (18-36)
[2018-07-14 03:52] LABS: DS DNA Ab (Crithidia) NEGATIVE (NEGATIVE)
[2018-07-14 16:48] LABS: Smooth Muscle Total Auto Abs Negative (Negative)
== END 2018-07-10 13:32 | disposition home or self-care (01) ==
LOC: NEPE 12:45 → NEDA 12:45 → NEPHCDU 17:34
PROVIDERS: ADMIT Hospitalist; ATTEND Hospitalist
DX: I48.1 Persistent atrial fibrillation; Z79.01 Long term (current) use of anticoagulants; I07.1 Rheumatic tricuspid insufficiency; Z79.82 Long term (current) use of aspirin; I10 Essential (primary) hypertension; D69.6 Thrombocytopenia, unspecified; Z82.49 Family history of ischemic heart disease and other diseases of the circulatory system; K92.1 Melena; I34.1 Nonrheumatic mitral (valve) prolapse; Z79.899 Other long term (current) drug therapy